=== PATIENT | female | born 1960 | race Caucasian/White ===

== ENCOUNTER 2021-04-15 16:13 | Outpatient (REF) | payer OTHER, SELFPAY ==
[2021-04-15 17:36] LABS: MANUAL DIFF FLAG NO
[2021-04-15 17:41] LABS: Basophils Absolute Auto 0.1 X10*3/uL (0.0-0.2); Basophils Percent Auto 1.5 % (0-2); Eosinophils Absolute Auto 0.1 X10*3/uL (0.0-0.4); Eosinophils Percent Auto 1.5 % (0-4); Hematocrit 37.4 % (37-47); Hemoglobin 12.2 g/dl (12.0-16.0); Imm Gran Abs Auto 0.01 X10*3/uL (0.00-0.03); Imm Gran Pct Auto 0.2 % (0.0-0.4); Lymphocytes Absolute Auto 2.1 X10*3/uL (1.2-4.9); Lymphocytes Percent Auto 39.2 % (20-40); Mean Corpuscular HGB Conc 32.6 g/dl (31.0-35.0); Mean Corpuscular Hemoglobin 31.1 pg (27.0-33.0); Mean Corpuscular Volume 95.4 fL (80-98); Mean Platelet Volume 9.4 fL (9.4-12.3); Monocytes Absolute Auto 0.5 X10*3/uL (0.1-1.2); Monocytes Percent Auto 8.5 % (2-11); Neutrophils Absolute Auto 2.7 X10*3/uL (2.0-8.3); Neutrophils Percent Auto 49.1 % (45-73); Platelet Count 347 X10*3/uL (160-400); Red Blood Count 3.92 X10*6/uL (4.20-5.50); Red Cell Distribution Width 12.3 % (11.0-16.0); White Blood Count 5.4 X10*3/uL (4.8-10.8)
[2021-04-15 18:29] LABS: Alanine Aminotransferase 11 U/L (0-31); Albumin Level 4.5 g/dL (3.5-5.0); Alkaline Phosphatase 77 U/L (39-117); Anion Gap 12 (12-20); Aspartate Amino Transferase 18 U/L (5-31); Bilirubin Total 0.8 mg/dL (0.0-1.0); Blood Urea Nitrogen 11 mg/dL (9-16); C Reactive Protein 0.16 mg/dL (< or = 0.50); Calcium 9.3 mg/dL (8.4-10.2); Carbon Dioxide 26 mmol/L (22-29); Chloride 108 mmol/L (96-108); Estimated Glomerular Filt Rate > 60; Glucose Random 88 mg/dL (60-115); Potassium 3.9 mmol/L (3.3-5.1); Sodium 142 mmol/L (135-145); Total Protein 6.9 g/dL (6.5-8.0)
[2021-04-15 18:51] LABS: Thyroid Stimulating Hormone 6.77 uIU/mL (0.32-4.0)
[2021-04-15 18:52] LABS: Vitamin B12 280 pg/mL (200-900)
== END 2021-04-15 16:14 | disposition home or self-care (01) ==
LOC: HO.LAB 16:13
PROVIDERS: PCP Internal Medicine; Visit Provider Internal Medicine
DX: R63.4 Abnormal weight loss (principal); E03.9 Hypothyroidism, unspecified; G43.909 Migraine, unspecified, not intractable, without status migrainosus
CPT/HCPCS: 36415; 80053; 82306; 82607; 84439; 84443; 85025; 86140

== ENCOUNTER 2021-07-07 08:38 | Day surgery (SDC) | payer OTHER, SELFPAY ==
[2021-07-03 07:45] VITALS: BMI 23.3
--- NOTE | 2021-07-03 09:48 | P.CONAN_ITS ---
Documented by User: Dianna Sweeney NP 07/10/21 14:23 HPI - Anesthesia Eval Consult details Narrative: 60yo F for Colonoscopy PMFSH Past Medical History Medical History (Updated 06/30/21 @ 11:47 by Chayo Curry, TIMMY) Anxiety and depression Arthritis Hx of migraines Hypothyroid Surgical History Surgical History (Updated 06/30/21 @ 11:47 by Chayo Curry RN) History of laparoscopic appendectomy Hx of colonoscopy Hx of hysterectomy Social History Social History Patient Tobacco Use Status: Former Tobacco user Use of substances other than those prescribed or required for medical reasons: No Are you DNR?: No Advance Directives: No Advance Directives Information Provided: Yes Meds Allergies Allergy/AdvReac Type Severity Reaction Status Date / Time DUST Allergy Unknown CONGESTION; Uncoded 06/30/21 11:47 ITCHINESS Environmental Allergy Unknown STUFFY NOSE Uncoded 06/30/21 11:47 Home Medications Medication Instructions Recorded Confirmed Last Taken Type buspirone 5 mg tablet 1 tab PO BID 06/30/21 06/30/21 Unknown History levothyroxine 88 mcg tablet 1 tab PO DAILY 06/30/21 06/30/21 Unknown History (Synthroid) lorazepam 1 mg tablet 1 mg PO BID PRN 07/01/21 07/01/21 Unknown History omega 8-xrj-lcf-fish oil 1,200 mg cap PO 07/01/21 Unknown History (144 mg-216 mg) capsule (Fish Oil) quetiapine 100 mg tablet (Seroquel) 100 mg PO BEDTIME 07/01/21 07/01/21 Unknown History venlafaxine 100 mg tablet 100 mg PO DAILY 07/01/21 07/01/21 Unknown History acetaminophen 325 mg tablet 325 mg PO QID PRN 07/07/21 07/07/21 Unknown History Exam Exam Date and Time: July 03, 2021 0948 Height,Weight and Vital Signs: Height 5 ft 7 in Weight 67.585 kg Pertinent Lab Results Pertinent Lab Results: Laboratory Tests 04/15/21 04/15/21 16:30 16:30 WBC 5.4 Hgb 12.2 Hct 37.4 Plt Count 347 Sodium 142 Potassium 3.9 Chloride 108 Carbon Dioxide 26 BUN 11 Creatinine 0.81 Assessment and Plan Assessment Anesthesia Assessment: Chart Reviewed Documented by User: Chace Ramirez MD 07/14/21 16:39 PMFSH Past Medical History Medical History (Updated 06/30/21 @ 11:47 by Chayo Curry RN) Anxiety and depression Arthritis Hx of migraines Hypothyroid Family History Family history of problems with anesthesia: No Surgical History Surgical History (Updated 06/30/21 @ 11:47 by Chayo Curry RN) History of laparoscopic appendectomy Hx of colonoscopy Hx of hysterectomy History of Problems with Anesthesia: No Social History Social History Patient Tobacco Use Status: Former Tobacco user Use of substances other than those prescribed or required for medical reasons: No Are you DNR?: No Advance Directives: No Advance Directives Information Provided: Yes Meds Allergies Allergy/AdvReac Type Severity Reaction Status Date / Time DUST Allergy Unknown CONGESTION; Uncoded 06/30/21 11:47 ITCHINESS Environmental Allergy Unknown STUFFY NOSE Uncoded 06/30/21 11:47 Home Medications Medication Instructions Recorded Confirmed Last Taken Type buspirone 5 mg tablet 1 tab PO BID 06/30/21 06/30/21 Unknown History levothyroxine 88 mcg tablet 1 tab PO DAILY 06/30/21 06/30/21 Unknown History (Synthroid) lorazepam 1 mg tablet 1 mg PO BID PRN 07/01/21 07/01/21 Unknown History omega 2-iob-ucj-fish oil 1,200 mg cap PO 07/01/21 Unknown History (144 mg-216 mg) capsule (Fish Oil) quetiapine 100 mg tablet (Seroquel) 100 mg PO BEDTIME 07/01/21 07/01/21 Unknown History venlafaxine 100 mg tablet 100 mg PO DAILY 07/01/21 07/01/21 Unknown History acetaminophen 325 mg tablet 325 mg PO QID PRN 07/07/21 07/07/21 Unknown History Assessment and Plan Assessment Anesthesia Assessment: Anesthesia Plan Discussed Final Anesthetic Review Family History of Problems with Anesthesia: No History of Problems with Anesthesia: No NPO: Yes ASA Class: II Final Preanesthetic Review: No Changes in Pt Med Stat, Meds/Allgs Chart Reviewe d, Consent Obtained/Reviewed and Anes Risks/Benef Reviewed Patient Risk: Low Procedure Risk: Low Anesthetic Plan Anesthetic Plan: MAC: Disposition: Standard PACU
[2021-07-07 08:47] VITALS: BP 154/82; PULSE 88; RESP 16; TEMP 36.5; O2SAT 100
[2021-07-07] MEDS: Lactated Ringers 1,000 ML 100 ML IVCONT (09:16)
--- NOTE | 2021-07-07 09:36 | MHC.SHP ---
Pre-Procedural Eval Section A Date of Service: 07/07/21 The patient is an INPATIENT: No Changes since office visit: No Cold of Flu in the past 2 weeks, No New Medical Problems, No Changes in Medication and No Patient answered all questions The History & Physical has been completed within 30 days and I have reviewed it.: Yes Section B Chief Complaint: screening Allergies: Allergies Allergy/AdvReac Type Severity Reaction Status Date / Time DUST Allergy Unknown CONGESTION; Uncoded 06/30/21 11:47 ITCHINESS Environmental Allergy Unknown STUFFY NOSE Uncoded 06/30/21 11:47 Plan I have reviewed the history and physical and performed a pertinent physical examination on my patient. No changes have occurred unless specified.
[2021-07-07 10:13] VITALS: BP 108/60; PULSE 73; TEMP 36.5; O2SAT 98
--- NOTE | 2021-07-07 10:16 | PC.NURSE ---
md silva by bedside. patient remains sleeping. cont to monitor.
--- NOTE | 2021-07-07 10:20 | PM.OP ---
Brief Operative Note Date of Service: 07/07/21 Pre-op diagnosis: screening Post-op diagnosis: same Procedure: colonoscopy Surgeon: Kameron Austin Anesthesia: MAC Was an Vice President Of Customer Service used for this Procedure?: No Estimated blood loss (mL): 0 Pathology: none sent Condition: stable Disposition: PACU
--- NOTE | 2021-07-07 10:26 | PC.NURSE ---
sitting up in bed drinking water. denies pain or nausea.
[2021-07-07 10:28] VITALS: BP 130/67; PULSE 70; RESP 16; TEMP 36.5; O2SAT 99
--- NOTE | 2021-07-07 10:50 | OP_ITS ---
SURGEON: Kameron Austin MD INDICATIONS: Colon cancer screening. PREOPERATIVE DIAGNOSIS: POSTOPERATIVE DIAGNOSIS: PROCEDURE PERFORMED: Colonoscopy to the terminal ileum. ESTIMATED BLOOD LOSS: COMPLICATIONS: ANESTHESIA: ASSISTANTS: SPECIMENS: MEDICATIONS: Monitored anesthesia care. DESCRIPTION OF PROCEDURE: History and physical performed. The risks and benefits of the procedure were explained to the patient. Informed consent was obtained. The patient was placed in the left lateral decubitus position. The digital rectal exam was performed and was found to be normal. The Olympus pediatric video colonoscope was introduced into the rectum and advanced to the cecum without difficulty. The cecum was identified by transillumination, palpation, and identification of ileocecal valve. Examination was performed and the scope was removed. She tolerated the procedure well and was taken to recovery area in stable condition. FINDINGS: The terminal ileum was normal. The visualized colonic mucosa was normal. The quality of the prep was good. No polyps were identified. There were few diverticula in the sigmoid colon. Retroflexed examination was normal. IMPRESSION: Normal colonoscopy. RECOMMENDATIONS: 1. Follow up as needed. 2. Repeat colonoscopy is recommended in 10 years for average risk individuals. MD TRINY Valerio/WILBER / [id number]
== END 2021-07-07 11:04 | disposition home or self-care (01) ==
PROVIDERS: PCP Internal Medicine; Visit Provider Internal Medicine Gastroenterology
PROC: 0DJD8ZZ Inspection of Lower Intestinal Tract, Via Natural or Artificial Opening Endoscopic (ICD-10-PCS; CPT 45378; principal; 2021-07-07 09:30)
DX: Z12.11 Encounter for screening for malignant neoplasm of colon (principal); Z86.010 Personal history of colon polyps; K57.30 Diverticulosis of large intestine without perforation or abscess without bleeding; K58.0 Irritable bowel syndrome with diarrhea; E03.9 Hypothyroidism, unspecified; J30.2 Other seasonal allergic rhinitis; Z85.41 Personal history of malignant neoplasm of cervix uteri; Z90.710 Acquired absence of both cervix and uterus; Z79.899 Other long term (current) drug therapy
CPT/HCPCS: 45378

== ENCOUNTER 2021-08-17 14:59 | Outpatient (REF) | payer OTHER, SELFPAY ==
[2021-08-17 15:51] LABS: Influenza A PCR NEGATIVE (Negative); Influenza B PCR NEGATIVE (Negative); Resp Syncy Virus RNA Qual PCR NEGATIVE (Negative); SARS COV2 PCR INHOUSE NEGATIVE (Negative)
== END 2021-08-17 15:00 | disposition home or self-care (01) ==
LOC: HO.LNP 14:59
PROVIDERS: Visit Provider Internal Medicine
DX: Z20.822 Contact with and (suspected) exposure to COVID-19 (principal); R05.9 Cough, unspecified
CPT/HCPCS: 0241U

== ENCOUNTER 2022-01-29 18:03 | Emergency (ER) | payer OTHER, SELFPAY ==
[2022-01-29 19:29] VITALS: BP 134/52; PULSE 76; RESP 18; TEMP 36.1; O2SAT 100; BMI 22.8
[2022-01-29 22:23] VITALS: BP 153/54; PULSE 79; RESP 18; TEMP 36.7; O2SAT 98
--- NOTE | 2022-01-29 22:48 | ED.ALLEREA ---
HPI - Allergic Reaction General Chief complaint: Skin/Abscess/Foreign Body Stated complaint: Rash Time Seen by Provider: 01/29/22 22:40 Source: patient Mode of arrival: ambulatory Limitations: no limitations History of Present Illness HPI narrative: 61-year-old female who presents emergency department for evaluation of a pruritic rash. The patient states that the rash started yesterday afternoon. The rash started on her hands and then spread rapidly to her legs and whole body. The rash is pruritic. She is concerned that it may be an allergic reaction caused by a dog flea collar that she put on her dog recently. She denied swelling of her lips or tongue. She denied difficulty swallowing. She denied lightheadedness, dizziness, nausea, vomiting, shortness of breath or dyspnea on exertion. Patient states she took 25 mg of Benadryl yesterday and today with no relief for symptoms. She was concerned that the rash was spreading therefore she came to the emergency department for evaluation. MD complaint: allergic reaction Onset (ago): day(s) (2) Exposure: other (Exposure to dog flea college) Symptoms: rash and itching Severity: severe Treatment prior to arrival: benadryl Previous Allergic Reaction History: none Related Data Home Medications Medication Instructions Recorded Confirmed buspirone 5 mg tablet 1 tab PO BID 06/30/21 06/30/21 levothyroxine 88 mcg tablet 1 tab PO DAILY 06/30/21 06/30/21 (Synthroid) lorazepam 1 mg tablet 1 mg PO BID PRN 07/01/21 07/01/21 omega 7-rml-quj-fish oil 1,200 mg cap PO 07/01/21 (144 mg-216 mg) capsule (Fish Oil) quetiapine 100 mg tablet (Seroquel) 100 mg PO BEDTIME 07/01/21 07/01/21 venlafaxine 100 mg tablet 100 mg PO DAILY 07/01/21 07/01/21 acetaminophen 325 mg tablet 325 mg PO QID PRN 07/07/21 07/07/21 Previous Rx's Medication Instructions Recorded prednisone 20 mg tablet 60 mg PO DAILY 7 Days #21 tab 01/29/22 Allergies Allergy/AdvReac Type Severity Reaction Status Date / Time oxycodone [From OxyContin] Allergy Vomiting Verified 01/29/22 19:33 DUST Allergy Unknown CONGESTION; Uncoded 06/30/21 11:47 ITCHINESS Environmental Allergy Unknown STUFFY NOSE Uncoded 06/30/21 11:47 Review of Systems Review of Systems: Yes all other systems are reviewed and are negative [facility] Past Medical History Medical History Anxiety and depression Arthritis Hx of migraines Hypothyroid Surgical History History of laparoscopic appendectomy Hx of colonoscopy Hx of hysterectomy Social History Social History Patient Tobacco Use Status: Former Tobacco user Advance Directives: No Advance Directives Information Provided: Yes Physical Exam ED Vital Signs: Vital Signs - 24 hr 01/29/22 19:29 01/29/22 22:23 Temperature 97 F 98.0 F Pulse Rate 76 79 Respiratory Rate 18 18 Blood Pressure 134/52 L 153/54 H Pulse Oximetry 100 98 BMI result Body Mass Index 22.8 Const General: cooperative and no acute distress Orientation/consciousness: oriented to person and oriented to place Limitations: no limitations HENMT Head: Yes normal to inspection, Yes normocephalic and Yes atraumatic Ears: external ears normal General nose exam: Normal external nose present Face and sinus: Yes normal facial exam Mouth: Normal oral and palatal mucosa present Throat: Yes posterior oropharynx normal Eyes General: appearance normal, both eyes and all related structures Pupils: Equal, round and reactive pupils present Neck Neck: Yes normal visual inspection, Yes no lymphadenopathy, Yes trachea midline and Yes supple Chest Chest palpation & inspection: normal inspection of the chest and normal palpation of entire chest wall Resp Effort & Inspection: normal respiratory effort and able to speak in complete sentences Auscultation: clear to auscultation bilaterally Cardio Rate: regular rate Rhythm: regular rhythm Heart sounds: S1 normal heart sound present, S2 normal heart sound present and no murmurs GI Inspection: Yes normal to inspection Palpation (GI): Soft to palpation, nontender and no guarding Auscultation: normal bowel sounds General: Yes no CVA tenderness Back/Spine/Pelvis Back: no CVA tenderness Skin Other: Diffuse urticarial rash which blanches with pressure Neuro General: oriented to person and oriented to place Cranial nerves: Yes CN's II-XII intact bilaterally and Yes Equal, round and reactive pupils present Cognition (Neuro): normal cognition Motor exam (neuro): 5/5 motor strength present throughout Extrem General: Yes normal to inspection Psych Appearance: grossly normal Speech and movement: Normal speech and movement present Affect: normal affect Attitude: cooperative Thought process: Normal thought process present Thought content: Normal thought content present Course Course Course Narrative: 61-year-old female who presents to emergency department for evaluation of pruritic urticarial rash x2 days. Patient believes that the rash may be secondary to an exposure to her dogs flea collar which she recently put on her dog. The patient had no concerning symptoms such is lip or tongue swelling, difficulty swallowing, shortness of breath, nausea, vomiting or dyspnea on exertion. I did discuss management allergic reactions with the patient. Patient was given prednisone 60 mg orally. She was advised to take prednisone 60 mg once a day for 5 more days. She was also advised to take Benadryl 50 mg 4 times a day as needed for the pruritic rash. She was given printed and verbal instructions and discharged home. Discharge Plan Discharge Clinical Impression: Urticaria Allergic reaction Qualifiers: Encounter type: initial encounter Qualified Code(s): T78.40XA - Allergy, unspecified, initial encounter Patient Disposition: Home, Self-Care Instructions: Urticaria (ED) Additional Instructions: Your symptoms and rash are consistent with an allergic reaction. I would suggest that you remove the dog sleep collar since this could be the cause of your rash. Take Benadryl (diphenhydramine) 25 mg pills, 2 pills 4 times a day for the next 2-3 days to help reduce the swelling and itchiness in the area of your rash. This medication will make you sleepy. Do not drive or work while taking this medication. Take prednisone 20 mg pills, 3 pills once a day for 5 days. Follow-up with your doctor in 2 days. Please return to the emergency department if your symptoms get worse or if you develop any symptoms that are concerning to you. Prescriptions: New prednisone 20 mg tablet 60 mg PO DAILY 7 Days Qty: 21 0RF No Action buspirone 5 mg tablet 1 tab PO BID 0RF levothyroxine [Synthroid] 88 mcg tablet 1 tab PO DAILY 0RF quetiapine [Seroquel] 100 mg Tablet 100 mg PO BEDTIME 0RF venlafaxine 100 mg Tablet 100 mg PO DAILY 0RF lorazepam 1 mg Tablet 1 mg PO BID PRN (Reason: Anxiety) 0RF omega 9-pab-txj-fish oil [Fish Oil] 1,200 (144-216) mg Capsule PO 0RF acetaminophen 325 mg Tablet 325 mg PO QID PRN (Reason: Pain (Scale Score 1-3)) 0RF Interventions: ED Discharge Assessment Last Done: 01/29/22 22:49 Discharge Date/Time: 01/29/22 23:35
[2022-01-29] MEDS: predniSONE 20 MG TABLET 60 MG PO (23:30)
== END 2022-01-29 23:35 | disposition home or self-care (01) ==
PROVIDERS: Emergency Provider Emergency Medicine Emergency Medical Services; PCP Internal Medicine
DX: L50.0 Allergic urticaria (principal)
CPT/HCPCS: 99283

== ENCOUNTER 2022-02-03 18:30 | Emergency (ER) | payer OTHER, SELFPAY ==
--- NOTE | 2022-02-03 | ECG_ITS ---
Test Reason : rash Blood Pressure : / mmHG Vent. Rate : 090 BPM Atrial Rate : 090 BPM P-R Int : 148 ms QRS Dur : 088 ms QT Int : 346 ms P-R-T Axes : 073 035 026 degrees QTc Int : 423 ms Normal sinus rhythm Possible Left atrial enlargement Borderline ECG No previous ECGs available Referred By: Generic ED Physician Electronically Signed By:YNES RAJPUT MD
[2022-02-03 19:03] VITALS: BP 136/61; PULSE 108; RESP 20; TEMP 36.6; O2SAT 98; BMI 23.1
[2022-02-03 19:20] LABS: MANUAL DIFF FLAG NO
[2022-02-03 19:28] LABS: Basophils Percent Auto 0.1 % (0-2); Eosinophils Absolute Auto 0.2 X10*3/uL (0.0-0.4); Eosinophils Percent Auto 2.1 % (0-4); Hemoglobin 12.1 g/dl (12.0-16.0); Imm Gran Abs Auto 0.02 X10*3/uL (0.00-0.03); Imm Gran Pct Auto 0.3 % (0.0-0.4); Lymphocytes Absolute Auto 1.9 X10*3/uL (1.2-4.9); Lymphocytes Percent Auto 26.7 % (20-40); Mean Corpuscular HGB Conc 32.7 g/dl (31.0-35.0); Mean Corpuscular Hemoglobin 30.6 pg (27.0-33.0); Mean Corpuscular Volume 93.4 fL (80.0-98.0); Mean Platelet Volume 8.8 fL (9.4-12.3); Monocytes Absolute Auto 0.7 X10*3/uL (0.1-1.2); Monocytes Percent Auto 9.3 % (2-11); Neutrophils Absolute Auto 4.3 x10*3/uL (2.0-8.3); Neutrophils Percent Auto 61.5 % (45-73); Platelet Count 297 X10*3/uL (160-400); Red Blood Count 3.96 X10*6/uL (4.20-5.50); Red Cell Distribution Width 12.9 % (11.0-16.0)
[2022-02-03 19:32] LABS: Anion Gap 11 (12-20); Blood Urea Nitrogen 19 mg/dL (9-16); Calcium 9.1 mg/dL (8.4-10.2); Carbon Dioxide 29 mmol/L (22-29); Chloride 105 mmol/L (96-108); Creatinine Clr Calc Pharmacy 59.4; Estimated Glomerular Filt Rate 57; Glucose Random 103 mg/dL (60-115); Potassium 3.8 mmol/L (3.3-5.1); Sodium 141 mmol/L (135-145)
[2022-02-03 19:33] LABS: COVID-19 Test Positive (Negative); IDNOW Serial# 16C4AD1C
[2022-02-03 19:37] LABS: Influenza A Negative (Negative); Influenza B2 Negative (Negative)
[2022-02-03 19:54] LABS: Troponin-I High Sensitivity < 3.5 ng/L (<3.5-17.0)
--- NOTE | 2022-02-03 21:43 | ED_ITS ---
HPI - General Adult General Chief complaint: General Medical Stated complaint: rash Time Seen by Provider: 02/03/22 21:41 Source: patient Mode of arrival: ambulatory Limitations: no limitations History of Present Illness HPI narrative: 61 y/o female with history of hypothyrodism, depression, anxiety who presents to the ER for evaluation of an ongoing itchy rash all over her body. She was seen here on 01/29 for the same and was prescribed a 7 day course of prednisone 60 mg. She reports taking extra prednisone and completed the course yesterday, after 5 days. She reports no improvement with benadryl but has not been taking it regularly. She went to go buy hydroortisone cream today and while in the store she felt weak and lightheaded. She also started with a productive cough wtih yellow phlegm. No SOB or chest pain. Her brother recently got diagnosed with COVID. 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 MD complaint: rash Onset (ago): day(s) () Location: back, buttocks, left, right, upper extremity and lower extremity Severity: severe Quality: burning and other (itching) Pain Consistency: constant Relieving factors: medication Exacerbating factors: none Associated symptoms: cough and weakness Treatments prior to arrival: none Related Data Home Medications Medication Instructions Recorded Confirmed buspirone 5 mg tablet 1 tab PO BID 06/30/21 06/30/21 levothyroxine 88 mcg tablet 1 tab PO DAILY 06/30/21 06/30/21 (Synthroid) lorazepam 1 mg tablet 1 mg PO BID PRN 07/01/21 07/01/21 omega 6-zhx-cki-fish oil 1,200 mg cap PO 07/01/21 (144 mg-216 mg) capsule (Fish Oil) quetiapine 100 mg tablet (Seroquel) 100 mg PO BEDTIME 07/01/21 07/01/21 venlafaxine 100 mg tablet 100 mg PO DAILY 07/01/21 07/01/21 acetaminophen 325 mg tablet 325 mg PO QID PRN 07/07/21 07/07/21 Previous Rx's Medication Instructions Recorded prednisone 20 mg tablet 60 mg PO DAILY 7 Days #21 tab 01/29/22 prednisone 10 mg tablets in a dose See Taper PO DAILY #21 ea 02/03/22 pack Allergies Allergy/AdvReac Type Severity Reaction Status Date / Time oxycodone [From OxyContin] Allergy Vomiting Verified 01/29/22 19:33 DUST Allergy Unknown CONGESTION; Uncoded 06/30/21 11:47 ITCHINESS Environmental Allergy Unknown STUFFY NOSE Uncoded 06/30/21 11:47 Review of Systems Review of Systems: Constitutional: No Fever, No Chills ENT/Mouth: + sore throat, No Rhinorrhea, No Swallowing Difficulty Eyes: No Eye Pain, No Swelling, No Redness Cardiovascular: No Chest Pain, No SOB, No Orthopnea, No Edema Respiratory: + Cough, + Sputum, No Wheezing, No dyspnea Gastrointestinal: No Nausea, No Vomiting, No Diarrhea, No abdominal Pain Musculoskeletal: No joint pain, No Myalgias Skin: No Skin Lesions, + rash Neuro: +Weakness, No Numbness, +Dizziness, No Headache Psych: + Anxiety/Panic, No Depression Heme/Lymph: No Bruising, No Lymphadenopathy PMFSH Past Medical History Medical History Anxiety and depression Arthritis Hx of migraines Hypothyroid Surgical History History of laparoscopic appendectomy Hx of colonoscopy Hx of hysterectomy Social History Social History Patient Tobacco Use Status: Former Tobacco user Advance Directives: No Advance Directives Information Provided: Yes Physical Exam ED Vital Signs: Vital Signs - 24 hr 02/03/22 19:03 02/03/22 21:47 02/03/22 21:48 Temperature 97.8 F Pulse Rate 108 H 90 94 Respiratory Rate 20 Blood Pressure 136/61 134/69 117/72 Pulse Oximetry 98 02/03/22 21:51 02/03/22 21:53 Temperature Pulse Rate 95 94 Respiratory Rate 16 Blood Pressure 131/61 117/72 Pulse Oximetry 98 BMI result Body Mass Index 23.1 Appearance: Alert. Oriented X3. No acute distress. Eyes: Pupils equal, round and reactive to light. ENT: Pharynx normal. Neck: Normal inspection. Neck supple. CVS: Normal heart rate and rhythm. Pulses normal. Respiratory: No respiratory distress. Breath sounds normal. Abdomen: Soft and nontender. +BS x4 Skin: Skin warm and dry. Normal skin color. Normal skin turgor. Diffuse erythematous maclopapular rash on the anterior thighs, dorsal forearms and hands , lower back, buttocks and posterior thighs. Extremities: No lower extremity edema. scattered ecchymotic areas on shins Neuro: Oriented X 3. No motor deficit. No sensory deficit. anxious Course Course Course Narrative: 61-year-old female presents to the ER with ongoing pruritic rash all over her body. Seen here 5 days ago for the same. No improvement with steroids. She is not taking benadryl regularly. On reinterview patient reports getting new laundry detergent called Eder which she has never used before. Could be etiology of her rash. Given she has been on high dose prednisone for 5+ days, will plan for a quick taper. Will also encourage patient to continue regular use of benadryl to stop histamine reaction. She will rewash her laundry with hypoallergenic detergent. Reevaluation(s) Reevaluation #1: Covid test is positive. EKG without STEMI or ischemic changes. Troponin negative. SpO2 98% on room air. COVID symptoms are mild. Counseled on worrisome signs and symptoms to promput urgent return to the ER. Will d/w with pred taper, topical hydrocortisone, and benadryl - counseled multiple times on importance of benadryl and removing the affecting agent from the home, most likely her new Eder detergent. Medical Decision Making Lab Data Result diagrams: 02/03/22 19:14 02/03/22 19:14 Labs: Lab Results 02/03/22 02/03/22 02/03/22 Range/Units 19:14 19:14 19:14 WBC 7.0 (4.8-10.8) X10*3/uL RBC 3.96 L (4.20-5.50) X10*6/uL Hgb 12.1 (12.0-16.0) g/dl Hct 37.0 (37.0-47.0) % MCV 93.4 (80.0-98.0) fL MCH 30.6 (27.0-33.0) pg MCHC 32.7 (31.0-35.0) g/dl RDW 12.9 (11.0-16.0) % Plt Count 297 (160-400) X10*3/uL MPV 8.8 L (9.4-12.3) fL Immature Gran % (Auto) 0.3 (0.0-0.4) % Neut % (Auto) 61.5 (45-73) % Lymph % (Auto) 26.7 (20-40) % [place] % (Auto) 9.3 (2-11) % Eos % (Auto) 2.1 (0-4) % Baso % (Auto) 0.1 (0-2) % Lymph # (Auto) 1.9 (1.2-4.9) X10*3/uL [place] # (Auto) 0.7 (0.1-1.2) X10*3/uL Eos # (Auto) 0.2 (0.0-0.4) X10*3/uL Baso # (Auto) 0.0 (0.0-0.2) X10*3/uL Abs Immat Gran (auto) 0.02 (0.00-0.03) X10*3/uL Absolute Neuts (auto) 4.3 (2.0-8.3) x10*3/uL Absolute Nucleated RBC 0.000 (0.0-0.012) X10*3/uL Nucleated RBC % (auto) 0.0 (0.0-0.2) /100WBC Sodium 141 (135-145) mmol/L Potassium 3.8 (3.3-5.1) mmol/L Chloride 105 (96-108) mmol/L Carbon Dioxide 29 (22-29) mmol/L Anion Gap 11 L (12-20) BUN 19 H (9-16) mg/dL Creatinine 0.99 (0.5-1.4) mg/dL Estim Creat Clear Calc 59.4 Estimated GFR 57 Random Glucose 103 (60-115) mg/dL Calcium 9.1 (8.4-10.2) mg/dL Troponin I High Sens (<3.5-17.0) ng/L COVID-19 (RAJ) Positive A (Negative) COVID-19 Clin Com See Note Influenza Type A ([facility]ARDO) (Negative) Influenza Type B (EVERARDO) (Negative) Influenza A & B Note 02/03/22 02/03/22 Range/Units 19:14 19:14 WBC (4.8-10.8) X10*3/uL RBC (4.20-5.50) X10*6/uL Hgb (12.0-16.0) g/dl Hct (37.0-47.0) % MCV (80.0-98.0) fL MCH (27.0-33.0) pg MCHC (31.0-35.0) g/dl RDW (11.0-16.0) % Plt Count (160-400) X10*3/uL MPV (9.4-12.3) fL Immature Gran % (Auto) (0.0-0.4) % Neut % (Auto) (45-73) % Lymph % (Auto) (20-40) % [place] % (Auto) (2-11) % Eos % (Auto) (0-4) % Baso % (Auto) (0-2) % Lymph # (Auto) (1.2-4.9) X10*3/uL [place] # (Auto) (0.1-1.2) X10*3/uL Eos # (Auto) (0.0-0.4) X10*3/uL Baso # (Auto) (0.0-0.2) X10*3/uL Abs Immat Gran (auto) (0.00-0.03) X10*3/uL Absolute Neuts (auto) (2.0-8.3) x10*3/uL Absolute Nucleated RBC (0.0-0.012) X10*3/uL Nucleated RBC % (auto) (0.0-0.2) /100WBC Sodium (135-145) mmol/L Potassium (3.3-5.1) mmol/L Chloride (96-108) mmol/L Carbon Dioxide (22-29) mmol/L Anion Gap (12-20) BUN (9-16) mg/dL Creatinine (0.5-1.4) mg/dL Estim Creat Clear Calc Estimated GFR Random Glucose (60-115) mg/dL Calcium (8.4-10.2) mg/dL Troponin I High Sens < 3.5 (<3.5-17.0) ng/L COVID-19 (RAJ) (Negative) COVID-19 Clin Com Influenza Type A (EVERARDO) Negative (Negative) Influenza Type B (EVERARDO) Negative (Negative) Influenza A & B Note See Note ECG Data Attestation: I personally reviewed and interpreted this ECG as follows: Interpretation: Normal sinus rhythm, heart rate 90 beats per minute, normal QTC, normal SC interval, no ST segment elevations or depressions. Critical Care Time Critical Care Time Critical Care Time: No Discharge Plan Discharge Clinical Impression: COVID-19, Dermatitis Patient Disposition: Home, Self-Care Instructions: Covid-19 Viral Syndrome and Novel Coronavirus (ED) Hey/Ath, Dermatitis (ED) Additional Instructions: You were found to be COVID-19 POSITIVE today. Your lab workup was otherwise unremarkable. Rest. Drink plenty of fluids. Do not go out in public while you are not feeling well. Take over the counter cold/flu medications as needed for your symptoms. Take Tylenol and/or Motrin as needed for fevers and body aches. Take the prescribed Prednisone taper exactly as directed. Take Benadryl 50 mg every 6-8 hours around the clock while awake. Use topical hydrocortisone cream on your back and buttock areas. Use ice to help the itching. Do your best not to scratch. Follow up with your doctor this week. Prescriptions: New prednisone 10 mg tablets,dose pack See Taper mg PO DAILY Qty: 21 0RF Taper: Prednisone 40 mg daily for 2 Days and 0 Hour 30 mg daily for 2 Days and 0 Hour 20 mg daily for 2 Days and 0 Hour 10 mg daily for 2 Days and 0 Hour No Action buspirone 5 mg tablet 1 tab PO BID 0RF levothyroxine [Synthroid] 88 mcg tablet 1 tab PO DAILY 0RF quetiapine [Seroquel] 100 mg Tablet 100 mg PO BEDTIME 0RF venlafaxine 100 mg Tablet 100 mg PO DAILY 0RF lorazepam 1 mg Tablet 1 mg PO BID PRN (Reason: Anxiety) 0RF omega 8-qaw-fqr-fish oil [Fish Oil] 1,200 (144-216) mg Capsule PO 0RF acetaminophen 325 mg Tablet 325 mg PO QID PRN (Reason: Pain (Scale Score 1-3)) 0RF prednisone 20 mg tablet 60 mg PO DAILY 7 Days Qty: 21 0RF Referrals: Rick Ernst MD [Primary Care Provider] - Interventions: ED Discharge Assessment Last Done: 02/03/22 22:51
[2022-02-03 21:47] VITALS: BP 134/69; PULSE 90
[2022-02-03 21:48] VITALS: BP 117/72; PULSE 94
[2022-02-03 21:51] VITALS: BP 131/61; PULSE 95
[2022-02-03 21:53] VITALS: BP 117/72; PULSE 94; RESP 16; O2SAT 98
[2022-02-03] MEDS: diphenhydrAMINE HCL 25 MG TABLET 50 MG PO (22:31)
[2022-02-03] MEDS: LORazepam 1 MG TABLET PO (22:31)
[2022-02-03] MEDS: predniSONE 20 MG TABLET 40 MG PO (22:31)
[2022-02-03] MEDS: Hydrocortisone 1 % Ointment 28.35 GM TUBE 1 APPL TOPICAL (22:31)
== END 2022-02-03 22:54 | disposition home or self-care (01) ==
PROVIDERS: Emergency Provider Student in an Organized Health Care Education/Training Program; PCP Internal Medicine
DX: U07.1 COVID-19 (principal); L30.9 Dermatitis, unspecified; R21 Rash and other nonspecific skin eruption; Z79.899 Other long term (current) drug therapy
CPT/HCPCS: 80048; 84484; 85025; 87502; 87635; 93005; 99283; Q0163

== ENCOUNTER 2022-03-05 17:27 | Outpatient (REF) | payer OTHER, SELFPAY ==
[2022-03-05 17:51] LABS: Appearance Urine CLEAR; Color Urine YELLOW; Glucose Urine UA NEG (NEG); Leukocyte Esterase Urine NEG (NEG); Nitrite Urine NEG (NEG); PH 5.5 (5.0-8.0); Specific Gravity - Urine >= 1.030 (1.005-1.025); Urine Blood NEG (NEG); Urine Ketones NEG (NEG); Urine Protein NEG (NEG-TRACE)
== END 2022-03-05 17:28 | disposition home or self-care (01) ==
LOC: HO.LAB 17:27
PROVIDERS: PCP Internal Medicine; Visit Provider Internal Medicine
DX: R30.0 Dysuria (principal)
CPT/HCPCS: 81003; 87086

== ENCOUNTER 2022-06-09 13:56 | Outpatient (REF) | payer OTHER, SELFPAY ==
[2022-06-09 15:27] LABS: Thyroid Stimulating Hormone 5.93 uIU/mL (0.32-4.0)
[2022-06-10 14:54] LABS: Free T4 (Free Thyroxine) 1.08 ng/dL (0.71-1.85)
[2022-06-14 13:18] LABS: Thyroid Peroxidase Antibodies 21 IU/mL (<9)
== END 2022-06-09 13:57 | disposition home or self-care (01) ==
LOC: HO.LAB 13:56
PROVIDERS: PCP Internal Medicine; Visit Provider Internal Medicine
DX: R53.83 Other fatigue (principal); E03.9 Hypothyroidism, unspecified
CPT/HCPCS: 36415; 84439; 84443; 86376

== ENCOUNTER 2022-06-10 13:35 | Outpatient (REF) | payer OTHER, SELFPAY | END 2022-06-10 13:36 | disposition home or self-care (01) | LOC: HO.LAB 13:35 | PROVIDERS: PCP Internal Medicine; Visit Provider Internal Medicine | DX: Z13.89 Encounter for screening for other disorder (principal) ==

== ENCOUNTER 2022-06-15 12:33 | Emergency (ER) | payer OTHER, SELFPAY ==
[2022-06-15 12:59] VITALS: BP 134/60; PULSE 84; RESP 18; TEMP 36.6; O2SAT 98; BMI 22.8
== END 2022-06-15 18:23 | disposition left against medical advice (07) ==
PROVIDERS: Emergency Provider Emergency Medicine; PCP Internal Medicine
DX: G43.909 Migraine, unspecified, not intractable, without status migrainosus (principal)
CPT/HCPCS: 99281

== ENCOUNTER 2022-09-21 14:38 | Outpatient (REF) | payer OTHER, SELFPAY ==
--- NOTE | ~2022-09-21 | XR_ITS ---
EXAMINATION: XR CERVICAL SPINE CLINICAL INFORMATION: Neck pain. COMPARISON: 02/03/2010. TECHNIQUE: 6 views of the cervical spine. FINDINGS: No abnormal prevertebral soft tissue swelling is seen. There is narrowing of the joint spaces from C4 through C7. Mild marginal spurring is present. Appearance is unchanged from previous study of February 03, 2010. No acute fracture is identified. There is some anterior neural foraminal encroachment from spurring of the joints of [place]ch[place] present at the C4-C5 and C5-C6 levels on the right and at the C4-C5 and C5-C6 levels on the left. XR/XR cervical spine min 6V IMPRESSION: Cervical spondylosis C4-C7 as described. No acute cervical spine fracture.
[2022-09-21 15:18] LABS: Appearance Urine Clear; Color Urine Yellow; Glucose Urine UA Negative (Negative); Leukocyte Esterase Urine Negative (Negative); Nitrite Urine Negative (Negative); PH 5.5 (5.0-9.0); Urine Blood Negative (Negative); Urine Ketones Negative (Negative); Urine Protein Negative (Neg-Trace)
[2022-09-21 17:14] LABS: Thyroid Stimulating Hormone 3.95 uIU/mL (0.32-4.0)
== END 2022-09-21 14:39 | disposition home or self-care (01) ==
LOC: HO.LAB 14:38
PROVIDERS: Absent Provider Internal Medicine; PCP Internal Medicine; Visit Provider Internal Medicine Endocrinology, Diabetes & Metabolism
DX: R30.0 Dysuria (principal); B96.20 Unspecified Escherichia coli [E. coli] as the cause of diseases classified elsewhere; E03.9 Hypothyroidism, unspecified; F41.9 Anxiety disorder, unspecified; M54.2 Cervicalgia
CPT/HCPCS: 36415; 72052; 81003; 84443; 87086; 87088; 87186

== ENCOUNTER 2023-04-11 10:29 | Outpatient (REF) | payer OTHER, SELFPAY ==
[2023-04-11 10:48] LABS: MANUAL DIFF FLAG NO
[2023-04-11 11:29] LABS: Basophils Absolute Auto 0.1 X10*3/uL (0.0-0.2); Basophils Percent Auto 1.6 % (0-2); Eosinophils Absolute Auto 0.2 X10*3/uL (0.0-0.4); Eosinophils Percent Auto 3.3 % (0-4); Hematocrit 39.3 % (37.0-47.0); Hemoglobin 12.9 g/dl (12.0-16.0); Imm Gran Abs Auto 0.01 X10*3/uL (0.00-0.03); Imm Gran Pct Auto 0.2 % (0.0-0.4); Lymphocytes Absolute Auto 1.8 X10*3/uL (1.2-4.9); Lymphocytes Percent Auto 31.5 % (20-40); Mean Corpuscular HGB Conc 32.8 g/dl (31.0-35.0); Mean Corpuscular Hemoglobin 31.1 pg (27.0-33.0); Mean Corpuscular Volume 94.7 fL (80.0-98.0); Mean Platelet Volume 8.9 fL (9.4-12.3); Monocytes Absolute Auto 0.5 X10*3/uL (0.1-1.2); Monocytes Percent Auto 8.3 % (2-11); Neutrophils Absolute Auto 3.2 x10*3/uL (2.0-8.3); Neutrophils Percent Auto 55.1 % (45-73); Platelet Count 373 X10*3/uL (160-400); Red Blood Count 4.15 X10*6/uL (4.20-5.50); Red Cell Distribution Width 12.2 % (11.0-16.0); White Blood Count 5.8 X10*3/uL (4.8-10.8)
[2023-04-11 13:05] LABS: Alanine Aminotransferase 10 U/L (0-31); Albumin Level 4.3 g/dL (3.5-5.0); Alkaline Phosphatase 81 U/L (39-117); Anion Gap 13 (12-20); Aspartate Amino Transferase 17 U/L (5-31); Bilirubin Total 0.5 mg/dL (0.0-1.0); Blood Urea Nitrogen 12 mg/dL (9-16); Calcium 9.5 mg/dL (8.4-10.2); Carbon Dioxide 26 mmol/L (22-29); Chloride 109 mmol/L (96-108); Cholesterol 187 mg/dL; Estimated Glomerular Filt Rate > 60; Glucose Random 86 mg/dL (60-115); HDL Cholesterol 50 mg/dL; LDL Cholesterol Calculated 124 mg/dl; Potassium 4.2 mmol/L (3.3-5.1); Sodium 144 mmol/L (135-145); Total Protein 6.8 g/dL (6.5-8.0); Triglycerides 66 mg/dL
[2023-04-11 13:10] LABS: Free T4 (Free Thyroxine) 0.75 ng/dL (0.71-1.85); Thyroid Stimulating Hormone 15.82 uIU/mL (0.32-4.0)
== END 2023-04-11 10:30 | disposition home or self-care (01) ==
LOC: HO.LAB 10:29
PROVIDERS: PCP Internal Medicine; Visit Provider Internal Medicine
DX: E03.9 Hypothyroidism, unspecified (principal); M54.9 Dorsalgia, unspecified; R06.00 Dyspnea, unspecified
CPT/HCPCS: 36415; 80053; 80061; 84439; 84443; 85025

== ENCOUNTER → 2023-04-15 08:09 | Outpatient (REF) | payer OTHER, SELFPAY ==
--- NOTE | 2023-04-15 08:11 | CA_ITS ---
Acquisition Time: 2023-04-15 08:27:53 Total Exercise Time: 00:08:00 Test Indications: CP Medications: BUSPIRONE SYNTHROID VENLAFAXINE QUETIPINE Protocol: WILLOW Max HR: 155 BPM 98% of Pred: 157 BPM Max BP: 178/074 mmHG Max Work Load: 10.1 METS PT EXERCISED ON STD WILLOW PROTOCOL FOR 8 MIN INTO STAGE 3. MAX HR 155-98%MAX. NO CP OR SOB. NONSPECIFIC ST CHANGES. OCC PAC'S IN FIRST MIN OF RECOVERY. GOOD EXERCISE TOLERANCE CLINICALLY NEG TEST. NONSPECIFIC ST CHANGES NOT LIKELY TO BE DUE TO ISCHEMIA BASED ON PT'S LACK OF SXS AND GOOD EXERCISE TOLERANCE Referred By: Rick Beaver Overread By: LEW BEAVER MD
== END ==
LOC: HO.CARD 08:09
PROVIDERS: PCP Internal Medicine; Visit Provider Internal Medicine
DX: R07.89 Other chest pain (principal)
CPT/HCPCS: 93017

== ENCOUNTER 2023-08-05 12:04 | Outpatient (REF) | payer OTHER, SELFPAY ==
[2023-08-05 13:03] LABS: MANUAL DIFF FLAG NO
[2023-08-05 13:06] LABS: Basophils Absolute Auto 0.1 X10*3/uL (0.0-0.2); Basophils Percent Auto 1.4 % (0-2); Eosinophils Absolute Auto 0.1 X10*3/uL (0.0-0.4); Eosinophils Percent Auto 1.9 % (0-4); Hematocrit 37.9 % (37.0-47.0); Hemoglobin 12.8 g/dl (12.0-16.0); Imm Gran Abs Auto 0.01 X10*3/uL (0.00-0.03); Imm Gran Pct Auto 0.2 % (0.0-0.4); Mean Corpuscular HGB Conc 33.8 g/dl (31.0-35.0); Mean Corpuscular Hemoglobin 31.8 pg (27.0-33.0); Mean Platelet Volume 8.8 fL (9.4-12.3); Monocytes Absolute Auto 0.6 X10*3/uL (0.1-1.2); Monocytes Percent Auto 9.2 % (2-11); Neutrophils Absolute Auto 3.5 x10*3/uL (2.0-8.3); Neutrophils Percent Auto 56.3 % (45-73); Platelet Count 379 X10*3/uL (160-400); Red Blood Count 4.03 X10*6/uL (4.20-5.50); Red Cell Distribution Width 12.8 % (11.0-16.0); White Blood Count 6.3 X10*3/uL (4.8-10.8)
[2023-08-05 13:16] LABS: Appearance Urine Clear; Color Urine Yellow; Glucose Urine UA Negative (Negative); Leukocyte Esterase Urine Negative (Negative); Nitrite Urine Negative (Negative); PH 5.5 (5.0-9.0); Urine Blood Negative (Negative); Urine Ketones Negative (Negative); Urine Protein Negative (Neg-Trace)
[2023-08-05 13:21] LABS: Bacteria Urine None Seen (None Seen); Hyaline Casts Urine 0-2 /LPF (0-2); RBC Urine 0-2 /HPF (0-2); Squamous Epithelial Cell Urine 0-2 /HPF (0-2); WBC Urine 0-5 /HPF (0-5)
[2023-08-05 13:22] LABS: Anion Gap 8 (12-20); Blood Urea Nitrogen 16 mg/dL (9-16); Calcium 8.9 mg/dL (8.4-10.2); Carbon Dioxide 27 mmol/L (22-29); Chloride 108 mmol/L (96-108); Estimated Glomerular Filt Rate > 60; Glucose Random 92 mg/dL (60-115); Sodium 139 mmol/L (135-145)
[2023-08-05 13:38] LABS: Thyroid Stimulating Hormone 21.04 uIU/mL (0.32-4.0)
== END 2023-08-05 12:05 | disposition home or self-care (01) ==
LOC: HO.10HDL 12:04
PROVIDERS: Visit Provider Internal Medicine
DX: E03.9 Hypothyroidism, unspecified (principal); R30.0 Dysuria
CPT/HCPCS: 36415; 80048; 81001; 84439; 84443; 85025; 87086

== ENCOUNTER 2023-10-21 15:41 | Outpatient (REF) | payer OTHER, SELFPAY ==
[2023-10-21 18:40] LABS: Free T4 (Free Thyroxine) 0.78 ng/dL (0.71-1.85); Thyroid Stimulating Hormone 12.79 uIU/mL (0.32-4.0)
== END 2023-10-21 15:42 | disposition home or self-care (01) ==
LOC: HO.LAB 15:41
PROVIDERS: PCP Internal Medicine; Visit Provider Internal Medicine
DX: E03.9 Hypothyroidism, unspecified (principal)
CPT/HCPCS: 36415; 84439; 84443

== ENCOUNTER 2023-12-29 10:33 | Emergency (ER) | payer OTHER, SELFPAY ==
[2023-12-29 10:38] VITALS: BP 149/56; PULSE 76; RESP 16; TEMP 36.8; O2SAT 96; BMI 24.4
--- NOTE | 2023-12-29 11:00 | ED_ITS ---
HPI - Back Pain/Injury General Chief Complaint: Back Pain/Injury Stated Complaint: back pain Time Seen by Provider: 12/29/23 10:44 Source: patient Mode of arrival: ambulatory Limitations: no limitations History of Present Illness HPI Narrative: Jessica is a 63 year old female with history of hypothyroidism and osteoarthritis who presents today for evaluation of right lower back pain for 2 weeks. No history of recent injury or trauma. Reports that she had episode of diarrhea for 1 week prior to developing back pain. Pain is tender and stabbing in nature and localized to right flank region. Pain is not present at rest and most prominent with movement, bending, extension/flexion. Denies radiation or numbness/tingling. Reports increase in urination recently but denies pain or burning with urination, incontinence, or change in bowel movements. MD elicited complaint: back pain Onset (ago): week(s) (2) Timing: constant Pain scale (0-10): 7 Quality: sharp Exacerbating factors: movement and lifting Relieving factors: immobilization Context: bending Associated symptoms: denies other symptoms Work related injury: No Related Data Home Medications ?Medication ?Instructions ?Recorded ?Confirmed buspirone 5 mg tablet 1 tab PO BID 06/30/21 06/30/21 levothyroxine 88 mcg tablet 1 tab PO DAILY 06/30/21 06/30/21 (Synthroid) lorazepam 1 mg tablet 1 mg PO BID PRN Anxiety 07/01/21 07/01/21 omega 6-ssg-bll-fish oil 1,200 mg cap PO 07/01/21 (144 mg-216 mg) capsule (Fish Oil) quetiapine 100 mg tablet (Seroquel) 100 mg PO BEDTIME 07/01/21 07/01/21 venlafaxine 100 mg tablet 100 mg PO DAILY 07/01/21 07/01/21 acetaminophen 325 mg tablet 325 mg PO QID PRN Pain (Scale 07/07/21 07/07/21 Score 1-3) Previous Rx's ?Medication ?Instructions ?Recorded prednisone 20 mg tablet 60 mg (3 x 20 mg) PO DAILY 7 days 01/29/22 #21 tabs prednisone 10 mg tablets in a dose See Taper PO DAILY #21 ea 02/03/22 pack cyclobenzaprine 10 mg tablet 10 mg PO TID PRN muscle spasm #10 12/29/23 tabs ibuprofen 600 mg tablet 600 mg PO Q8H PRN pain #14 tabs 12/29/23 lidocaine 5 % topical patch 1 patch topical DAILY #15 ea 12/29/23 Allergies Allergy/AdvReac Type Severity Reaction Status Date / Time oxycodone [From OxyContin] Allergy Vomiting Verified 12/29/23 10:39 DUST Allergy Unknown CONGESTION; Uncoded 12/29/23 10:39 ITCHINESS Environmental Allergy Unknown STUFFY NOSE Uncoded 12/29/23 10:39 Review of Systems 2 Review of Systems: Yes all other systems are reviewed and are negative PMFSH Past Medical History Medical History Anxiety and depression Arthritis Hx of migraines Hypothyroid Surgical History History of laparoscopic appendectomy Hx of colonoscopy Hx of hysterectomy Social History Social History Patient Tobacco Use Status: Former Tobacco user Advance Directives: No Advance Directives Information Provided: No Physical Exam 2 Vital Signs: Vital Signs: Last Vital Signs Temp 98.1 F 12/29/23 12:49 Pulse 63 12/29/23 12:49 Resp 18 12/29/23 12:49 BP 129/79 12/29/23 12:49 Pulse Ox 98 12/29/23 12:49 O2 Del Method Room Air 12/29/23 12:49 BMI result Body Mass Index 24.4 Appearance: Alert. Oriented X3. No acute distress. Neck: Normal inspection. Neck supple. CVS: Normal heart rate and rhythm. Pulses normal. Respiratory: No respiratory distress. Breath sounds normal. Abdomen: Soft and nontender. +BS x4. Nondistended. Skin: Skin warm and dry. Normal skin color. Normal skin turgor. No rashes. Back: tender to palpation of right lumbar region. No swelling, erythema, or palpable masses. No CVA tenderness. negative straight leg raise test Extremities: No lower extremity edema. No joint swelling. Neuro/psych: Oriented X 3. Normal ambulation and gait Medical Decision Making Medical Decision Making MDM Narrative: Jessica is a 63 year old female with history of arthritis and hypothyroidism who presents today for evaluation of right lower back pain for 2 weeks. Pain is burning and aching in nature, exacerbated with movement. On exam, she has full ROM with lateral bending, flexion, extension but reports moderate pain. Negative SLR bilaterally. Low suspicion for nephrolithiasis, UTI considering negative/ noninfectious UA. Low suspicion for cauda equina with lack of urinary incontinence, intact neuro sensation. On reevaluation, she has worsened lumbar pain that is radiating upwards with movement after laying supine and sitting up. Pain is reproduction with palpation. Presentation is most consistent with lumbar muscular sprain/strain. Comfortable to discharge home with NSAIDs and muscle relaxant. Instructed to follow up with primary care and strict return precautions. Differential Diagnosis Differential Diagnoses: The differential diagnosis associated with the presentation includes muscular sprain/strain, herniated disc, UTI, pyelonephritis, nephrolithiasis, low suspicion for cauda equina Lab Data MDM Lab Attestation statement: I reviewed the patient's lab results. 12/29/23 11:30 12/29/23 11:30 Labs: Lab Results 12/29/23 12/29/23 Range/Units 11:30 11:47 WBC 6.6 (4.8-10.8) X10*3/uL RBC 3.88 L (4.20-5.50) X10*6/uL Hgb 12.1 (12.0-16.0) g/dl Hct 36.2 L (37.0-47.0) % MCV 93.3 (80.0-98.0) fL MCH 31.2 (27.0-33.0) pg MCHC 33.4 (31.0-35.0) g/dl RDW 12.2 (11.0-16.0) % Plt Count 314 (160-400) X10*3/uL MPV 8.7 L (9.4-12.3) fL Immature Gran % (Auto) 0.2 (0.0-0.4) % Neut % (Auto) 60.9 (45-73) % Lymph % (Auto) 27.8 (20-40) % [place] % (Auto) 7.8 (2-11) % Eos % (Auto) 1.8 (0-4) % Baso % (Auto) 1.5 (0-2) % Lymph # (Auto) 1.8 (1.2-4.9) X10*3/uL [place] # (Auto) 0.5 (0.1-1.2) X10*3/uL Eos # (Auto) 0.1 (0.0-0.4) X10*3/uL Baso # (Auto) 0.1 (0.0-0.2) X10*3/uL Abs Immat Gran (auto) 0.01 (0.00-0.03) X10*3/uL Absolute Neuts (auto) 4.0 (2.0-8.3) x10*3/uL Absolute Nucleated RBC 0.000 (0.0-0.012) X10*3/uL Nucleated RBC % (auto) 0.0 (0.0-0.2) /100WBC Sodium 140 (135-145) mmol/L Potassium 3.8 (3.3-5.1) mmol/L Chloride 107 (96-108) mmol/L Carbon Dioxide 28 (22-29) mmol/L Anion Gap 9 L (12-20) BUN 8 L (9-16) mg/dL Creatinine 0.66 (0.5-1.4) mg/dL Estim Creat Clear Calc 83.7 Estimated GFR > 60 Random Glucose 97 (60-115) mg/dL Calcium 10.1 D (8.4-10.2) mg/dL Total Bilirubin 0.5 (0.0-1.0) mg/dL Direct Bilirubin 0.2 (0.0-0.5) mg/dL AST 18 (5-31) U/L ALT 12 (0-31) U/L Alkaline Phosphatase 86 (39-117) U/L Total Protein 6.9 (6.5-8.0) g/dL Albumin 4.2 (3.5-5.0) g/dL Urine Color Yellow Urine Appearance Clear Urine pH 8.0 (5.0-9.0) Ur Specific [place] 1.010 (1.005-1.025) Urine Protein Negative (Neg-Trace) mg/dL Urine Glucose (UA) Negative (Negative) mg/dL Urine Ketones Negative (Negative) mg/dL Urine Blood Negative (Negative) Urine Nitrite Negative (Negative) Ur Leukocyte Esterase Negative (Negative) External Record Review External record reviewed: Office record, Outpatient record and Prior outpatient labs Tests considered The following testing was considered but not selected: CT scan considered but exam and labs reassuring Prescription Management I considered prescription management with: Pain Medication Critical Care Time Critical Care Time Critical Care Time: No Discharge Plan Discharge Clinical Impression: Strain of lumbar region Qualifiers: Encounter type: initial encounter Qualified Code(s): S39.012A - Strain of muscle, fascia and tendon of lower back, initial encounter Patient Disposition: Home, Self-Care Instructions: Low Back Strain (ED), Lower Back Exercises (ED) Additional Instructions: Your pain is most likely due to muscle strain and spasm. No bending, lifting or twisting. Use ice several times per day for 20 minutes at a time for the next 48 hours and then change to heat. Take medications as prescribed to help with pain and discomfort. Follow up with your Primary Care Doctor this week. If your pain worsens, if you develop new numbness, tingling, weakness, loss of function or incontinence call 911 or come back to the ER right away for evaluation. Prescriptions: New cyclobenzaprine 10 mg tablet 10 mg PO TID PRN (Reason: muscle spasm) Qty: 10 0RF ibuprofen 600 mg tablet 600 mg PO Q8H PRN (Reason: pain) Qty: 14 0RF lidocaine 5 % adhesive patch,medicated 1 patch topical DAILY Qty: 15 0RF Rx Instructions: leave on most painful area for up to 12 hrs No Action buspirone 5 mg tablet 1 tab PO BID levothyroxine [Synthroid] 88 mcg tablet 1 tab PO DAILY quetiapine [Seroquel] 100 mg Tablet 100 mg PO BEDTIME venlafaxine 100 mg Tablet 100 mg PO DAILY lorazepam 1 mg Tablet 1 mg PO BID PRN (Reason: Anxiety) omega 7-vru-xwz-fish oil [Fish Oil] 1,200 (144-216) mg Capsule PO acetaminophen 325 mg Tablet 325 mg PO QID PRN (Reason: Pain (Scale Score 1-3)) prednisone 10 mg tablets,dose pack See Taper PO DAILY Qty: 21 0RF Taper: Prednisone 40 mg daily for 2 Days and 0 Hour 30 mg daily for 2 Days and 0 Hour 20 mg daily for 2 Days and 0 Hour 10 mg daily for 2 Days and 0 Hour prednisone 20 mg tablet 60 mg PO DAILY 7 Days Qty: 21 0RF Referrals: Rick Ernst MD [Primary Care Provider] - Interventions: ED Discharge Assessment Last Done: 12/29/23 12:49 Discharge Date/Time: 12/29/23 12:50 Print Language: Romanian
[2023-12-29 11:33] LABS: MANUAL DIFF FLAG NO
[2023-12-29 11:38] LABS: Basophils Absolute Auto 0.1 X10*3/uL (0.0-0.2); Basophils Percent Auto 1.5 % (0-2); Eosinophils Absolute Auto 0.1 X10*3/uL (0.0-0.4); Eosinophils Percent Auto 1.8 % (0-4); Hematocrit 36.2 % (37.0-47.0); Hemoglobin 12.1 g/dl (12.0-16.0); Imm Gran Abs Auto 0.01 X10*3/uL (0.00-0.03); Imm Gran Pct Auto 0.2 % (0.0-0.4); Lymphocytes Absolute Auto 1.8 X10*3/uL (1.2-4.9); Lymphocytes Percent Auto 27.8 % (20-40); Mean Corpuscular HGB Conc 33.4 g/dl (31.0-35.0); Mean Corpuscular Hemoglobin 31.2 pg (27.0-33.0); Mean Corpuscular Volume 93.3 fL (80.0-98.0); Mean Platelet Volume 8.7 fL (9.4-12.3); Monocytes Absolute Auto 0.5 X10*3/uL (0.1-1.2); Monocytes Percent Auto 7.8 % (2-11); Neutrophils Percent Auto 60.9 % (45-73); Platelet Count 314 X10*3/uL (160-400); Red Blood Count 3.88 X10*6/uL (4.20-5.50); Red Cell Distribution Width 12.2 % (11.0-16.0); White Blood Count 6.6 X10*3/uL (4.8-10.8)
[2023-12-29 11:53] LABS: Alanine Aminotransferase 12 U/L (0-31); Albumin Level 4.2 g/dL (3.5-5.0); Alkaline Phosphatase 86 U/L (39-117); Anion Gap 9 (12-20); Aspartate Amino Transferase 18 U/L (5-31); Bilirubin Direct 0.2 mg/dL (0.0-0.5); Bilirubin Total 0.5 mg/dL (0.0-1.0); Blood Urea Nitrogen 8 mg/dL (9-16); Calcium 10.1 mg/dL (8.4-10.2); Carbon Dioxide 28 mmol/L (22-29); Chloride 107 mmol/L (96-108); Creatinine Clr Calc Pharmacy 83.7; Estimated Glomerular Filt Rate > 60; Glucose Random 97 mg/dL (60-115); Potassium 3.8 mmol/L (3.3-5.1); Sodium 140 mmol/L (135-145); Total Protein 6.9 g/dL (6.5-8.0)
[2023-12-29 11:54] LABS: Appearance Urine Clear; Color Urine Yellow; Glucose Urine UA Negative (Negative); Leukocyte Esterase Urine Negative (Negative); Nitrite Urine Negative (Negative); Urine Blood Negative (Negative); Urine Ketones Negative (Negative); Urine Protein Negative (Neg-Trace)
[2023-12-29 12:49] VITALS: BP 129/79; PULSE 63; RESP 18; TEMP 36.7; O2SAT 98
== END 2023-12-29 12:50 | disposition home or self-care (01) ==
PROVIDERS: Physician Assistant; Emergency Provider Emergency Medicine; PCP Internal Medicine
DX: S39.012A Strain of muscle, fascia and tendon of lower back, initial encounter (principal); X58.XXXA Exposure to other specified factors, initial encounter; Y93.9 Activity, unspecified; Y92.9 Unspecified place or not applicable; Y99.8 Other external cause status; Z79.899 Other long term (current) drug therapy
CPT/HCPCS: 36415; 80048; 80076; 81003; 85025; 99282; 99283

== ENCOUNTER 2024-04-28 21:09 | Emergency (ER) | payer OTHER, SELFPAY ==
--- NOTE | ~2024-04-28 | XR_ITS ---
EXAMINATION: XR CHEST 2 VIEWS CLINICAL INFORMATION: Cough. COMPARISON: Chest radiographs dated 12/01/2011. TECHNIQUE: Frontal and lateral views of the chest were obtained. FINDINGS: The heart, great vessels, pulmonary vasculature and mediastinum are normal. The lungs show no focal infiltrate, effusion or pneumothorax. There is biapical pleural thickening. There is no acute osseous abnormality. There is a mild lower thoracic dextroscoliosis. XR/XR chest 1V IMPRESSION: No active cardiopulmonary disease.
[2024-04-28 21:36] VITALS: BP 131/63; PULSE 84; RESP 16; TEMP 37.1; O2SAT 98; BMI 23.2
[2024-04-28 22:21] LABS: MANUAL DIFF FLAG NO
[2024-04-28 22:22] LABS: Basophils Absolute Auto 0.1 X10*3/uL (0.0-0.2); Basophils Percent Auto 0.7 % (0-2); Eosinophils Absolute Auto 0.1 X10*3/uL (0.0-0.4); Eosinophils Percent Auto 1.2 % (0-4); Hematocrit 37.1 % (37.0-47.0); Hemoglobin 12.4 g/dl (12.0-16.0); Imm Gran Abs Auto 0.01 X10*3/uL (0.00-0.03); Imm Gran Pct Auto 0.1 % (0.0-0.4); Lymphocytes Absolute Auto 2.5 X10*3/uL (1.2-4.9); Lymphocytes Percent Auto 34.3 % (20-40); Mean Corpuscular HGB Conc 33.4 g/dl (31.0-35.0); Mean Corpuscular Hemoglobin 31.1 pg (27.0-33.0); Mean Platelet Volume 8.7 fL (9.4-12.3); Monocytes Absolute Auto 0.8 X10*3/uL (0.1-1.2); Monocytes Percent Auto 11.5 % (2-11); Neutrophils Absolute Auto 3.8 x10*3/uL (2.0-8.3); Neutrophils Percent Auto 52.2 % (45-73); Platelet Count 302 X10*3/uL (160-400); Red Blood Count 3.99 X10*6/uL (4.20-5.50); Red Cell Distribution Width 12.4 % (11.0-16.0); White Blood Count 7.3 X10*3/uL (4.8-10.8)
[2024-04-28 22:36] LABS: Anion Gap 14 (12-20); Blood Urea Nitrogen 20 mg/dL (9-16); Calcium 9.1 mg/dL (8.4-10.2); Carbon Dioxide 26 mmol/L (22-29); Chloride 105 mmol/L (96-108); Creatinine Clr Calc Pharmacy 64.3; Estimated Glomerular Filt Rate > 60; Glucose Random 100 mg/dL (60-115); Potassium 3.8 mmol/L (3.3-5.1); Sodium 141 mmol/L (135-145)
[2024-04-28 23:00] LABS: Influenza A PCR NEGATIVE (Negative); Influenza B PCR NEGATIVE (Negative); Resp Syncy Virus RNA Qual PCR NEGATIVE (Negative); SARS COV2 PCR INHOUSE POSITIVE (Negative)
[2024-04-29 00:08] VITALS: BP 135/62; PULSE 86; RESP 16; TEMP 36.8; O2SAT 99
--- NOTE | 2024-04-29 00:49 | ED.GENADULT ---
HPI - General Adult General Chief complaint: Upper Respiratory Symptoms Stated complaint: cough, headache, congested Time Seen by Provider: 04/29/24 00:49 History of Present Illness ED Provider: Anirudh GORDILLO narrative: Patient is a 63-year-old woman who has felt unwell for about 3 days. She has been coughing a great deal. She has also had sneezing and runny nose and a headache. She says that her brother has been sick with similar symptoms the week before. Patient says she has never had a COVID vaccine. The patient says she is generally in good health. She says levothyroxine is our only prescription medication at the moment. She denies being a smoker. Related Data Home Medications ?Medication ?Instructions ?Recorded ?Confirmed buspirone 5 mg tablet 1 tab PO BID 06/30/21 06/30/21 levothyroxine 88 mcg tablet 1 tab PO DAILY 06/30/21 06/30/21 (Synthroid) lorazepam 1 mg tablet 1 mg PO BID PRN Anxiety 07/01/21 07/01/21 omega 1-hqa-qeu-fish oil 1,200 mg cap PO 07/01/21 (144 mg-216 mg) capsule (Fish Oil) quetiapine 100 mg tablet (Seroquel) 100 mg PO BEDTIME 07/01/21 07/01/21 venlafaxine 100 mg tablet 100 mg PO DAILY 07/01/21 07/01/21 acetaminophen 325 mg tablet 325 mg PO QID PRN Pain (Scale 07/07/21 07/07/21 Score 1-3) Previous Rx's ?Medication ?Instructions ?Recorded prednisone 20 mg tablet 60 mg (3 x 20 mg) PO DAILY 7 days 01/29/22 #21 tabs prednisone 10 mg tablets in a dose See Taper PO DAILY #21 ea 02/03/22 pack cyclobenzaprine 10 mg tablet 10 mg PO TID PRN muscle spasm #10 12/29/23 tabs ibuprofen 600 mg tablet 600 mg PO Q8H PRN pain #14 tabs 12/29/23 lidocaine 5 % topical patch 1 patch topical DAILY #15 ea 12/29/23 nirmatrelvir 300 mg (150 mg See Rx Instructions PO .COMPLEX 04/29/24 x2)-ritonavir 100 mg tablet,dose #30 ea pack (Paxlovid) Allergies Allergy/AdvReac Type Severity Reaction Status Date / Time oxycodone [From OxyContin] Allergy Vomiting Verified 04/28/24 21:39 DUST Allergy Unknown CONGESTION; Uncoded 04/28/24 21:39 ITCHINESS Environmental Allergy Unknown STUFFY NOSE Uncoded 04/28/24 21:39 Review of Systems Review of Systems: Yes all other systems are reviewed and are negative PMFSH Past Medical History Medical History Anxiety and depression Arthritis Hx of migraines Hypothyroid Surgical History History of laparoscopic appendectomy Hx of colonoscopy Hx of hysterectomy Social History Social History Patient Tobacco Use Status: Former Tobacco user Advance Directives: No Advance Directives Information Provided: No Do you have a plan to hurt others: No Plan Physical Exam ED Vital Signs: Vital Signs - 24 hr 04/28/24 21:36 04/29/24 00:08 Temperature 98.8 F 98.3 F Pulse Rate 84 86 Respiratory Rate 16 16 Blood Pressure 131/63 135/62 Pulse Oximetry 98 99 Oxygen Delivery Method Room Air Room Air BMI result Body Mass Index 23.2 Const Other: The patient is awake and alert. She has a slightly hoarse voice but does not seem acutely ill otherwise. HENMT Other: No facial asymmetry. Eyes Other: Pupils are round equal, conjunctivae are clear Resp Effort & Inspection: normal respiratory effort Auscultation: clear to auscultation bilaterally Cardio Rate: regular rate Rhythm: regular rhythm Heart sounds: S1 normal heart sound present and S2 normal heart sound present Skin General skin exam: no rashes or lesions noted Neuro Other: The patient is awake and alert with a normal mental status and normal cognition. Speech is clear. Eye movements intact. She moves her extremities normally and appropriately. She seems grossly neurologically intact and nontoxic. Extrem Other: No peripheral edema Medical Decision Making Medical Decision Making MDM Narrative: The patient is a 63-year-old woman presents with symptoms of an upper respiratory infection that she has had for about 3 days. She has tested positive for COVID. Other labs are unremarkable and she has a negative chest x-ray. The patient has never been vaccinated for COVID. The patient would like to be prescribed Paxlovid. The only medication she is currently taking is levothyroxine so I do not see any contraindication the Paxlovid in this patient. She will be discharged to cook pickled meat the prescription for Paxlovid. She should stay in touch with the regular doctor for additional advice as needed. Lab Data 04/28/24 22:16 04/28/24 22:16 Labs: Lab Results 04/28/24 Range/Units 22:16 WBC 7.3 (4.8-10.8) X10*3/uL RBC 3.99 L (4.20-5.50) X10*6/uL Hgb 12.4 (12.0-16.0) g/dl Hct 37.1 (37.0-47.0) % MCV 93.0 (80.0-98.0) fL MCH 31.1 (27.0-33.0) pg MCHC 33.4 (31.0-35.0) g/dl RDW 12.4 (11.0-16.0) % Plt Count 302 (160-400) X10*3/uL MPV 8.7 L (9.4-12.3) fL Immature Gran % (Auto) 0.1 (0.0-0.4) % Neut % (Auto) 52.2 (45-73) % Lymph % (Auto) 34.3 (20-40) % [place] % (Auto) 11.5 H (2-11) % Eos % (Auto) 1.2 (0-4) % Baso % (Auto) 0.7 (0-2) % Lymph # (Auto) 2.5 (1.2-4.9) X10*3/uL [place] # (Auto) 0.8 (0.1-1.2) X10*3/uL Eos # (Auto) 0.1 (0.0-0.4) X10*3/uL Baso # (Auto) 0.1 (0.0-0.2) X10*3/uL Abs Immat Gran (auto) 0.01 (0.00-0.03) X10*3/uL Absolute Neuts (auto) 3.8 (2.0-8.3) x10*3/uL Absolute Nucleated RBC 0.000 (0.0-0.012) X10*3/uL Nucleated RBC % (auto) 0.0 (0.0-0.2) /100WBC Sodium 141 (135-145) mmol/L Potassium 3.8 (3.3-5.1) mmol/L Chloride 105 (96-108) mmol/L Carbon Dioxide 26 (22-29) mmol/L Anion Gap 14 (12-20) BUN 20 H (9-16) mg/dL Creatinine 0.86 (0.5-1.4) mg/dL Estim Creat Clear Calc 64.3 Estimated GFR > 60 Random Glucose 100 (60-115) mg/dL Calcium 9.1 D (8.4-10.2) mg/dL Influenza Type A (PCR) NEGATIVE (Negative) Influenza Type B (PCR) NEGATIVE (Negative) RSV RNA Qual (PCR) NEGATIVE (Negative) SARS-CoV-2 RNA (RT-PCR) POSITIVE A (Negative) Discharge Plan Discharge Clinical Impression: COVID-19 Patient Disposition: Home, Self-Care Instructions: COVID-19 (Coronavirus Disease 2019) (ED) Additional Instructions: You have tested positive for COVID. I have sent a prescription for the medication Paxlovid which may help reduce the symptoms of COVID. Please cook pickled meat this prescription first thing in the morning and start taking it as soon as you pick it up. Please plan on isolating yourself fairly strictly for the first 5 days. If after 5 days you are feeling somewhat better and not having fevers you may go outside but make sure that you wear a mask when encountering other people for another 5 days. Please stay in touch with your regular doctor for additional advice as needed. Return to the emergency room if you feel significantly short of breath or significantly ill otherwise. Prescriptions: New Paxlovid 300 mg (150 mg x 2)-100 mg tablets,dose pack See Rx Instructions .ROUTE .COMPLEX Qty: 30 0RF Rx Instructions: take TWO 150 mg tablets of nirmatrelvir with ONE 100 mg tablet of ritonavir twice daily for 5 days No Action buspirone 5 mg tablet 1 tab PO BID levothyroxine [Synthroid] 88 mcg tablet 1 tab PO DAILY quetiapine [Seroquel] 100 mg Tablet 100 mg PO BEDTIME venlafaxine 100 mg Tablet 100 mg PO DAILY lorazepam 1 mg Tablet 1 mg PO BID PRN (Reason: Anxiety) omega 7-slh-rgx-fish oil [Fish Oil] 1,200 (144-216) mg Capsule PO acetaminophen 325 mg Tablet 325 mg PO QID PRN (Reason: Pain (Scale Score 1-3)) prednisone 10 mg tablets,dose pack See Taper PO DAILY Qty: 21 0RF Taper: Prednisone 40 mg daily for 2 Days and 0 Hour 30 mg daily for 2 Days and 0 Hour 20 mg daily for 2 Days and 0 Hour 10 mg daily for 2 Days and 0 Hour prednisone 20 mg tablet 60 mg PO DAILY 7 Days Qty: 21 0RF cyclobenzaprine 10 mg tablet 10 mg PO TID PRN (Reason: muscle spasm) Qty: 10 0RF ibuprofen 600 mg tablet 600 mg PO Q8H PRN (Reason: pain) Qty: 14 0RF lidocaine 5 % adhesive patch,medicated 1 patch topical DAILY Qty: 15 0RF Rx Instructions: leave on most painful area for up to 12 hrs Referrals: Rick Ernst MD [Primary Care Provider] - (COVID-19) Print Language: Thai
[2024-04-29] MEDS: Ibuprofen 600 MG TABLET PO (01:10)
[2024-04-29] MEDS: Acetaminophen 325 MG TABLET 975 MG PO (01:10)
[2024-04-29 01:17] VITALS: BP 135/62; PULSE 86; RESP 16; TEMP 36.8; O2SAT 99
== END 2024-04-29 01:18 | disposition home or self-care (01) ==
PROVIDERS: Emergency Provider Emergency Medicine; PCP Internal Medicine
DX: U07.1 COVID-19 (principal); R05.9 Cough, unspecified; R51.9 Headache, unspecified
CPT/HCPCS: 0241U; 36415; 71045; 80048; 85025; 99283

== ENCOUNTER 2024-05-14 13:00 | Outpatient (RCR) | payer OTHER, SELFPAY ==
--- NOTE | 2024-04-05 16:52 | MHC.PT.EP ---
[facility] [place] Office [place] Office [place] Office [address] [phone] F: [phone] F: [phone] F: [phone] F: [phone] Physical Therapy Plan of Care Date of Evaluation: 04/05/24 Date of Surgery: Diagnosis: Cervicalgia. Assessment: Pt is a 63 RHD y/o female with Hx of OA and migraine referred to PT for eval and treat of cervicalgia which is resulting in decreased tolerance for driving, lifting objects of weight, reading as well as frequent HOLLY and disturbed sleep secondary to mild decreased cervical ROM, increased cervical accessory tissue tension, decreased posterior scapular musculature, Pt is deemed an appropriate candidate to receive skilled PT services to address their physical impairments in order to improve their functional ability. Frequency and Duration: The patient will be seen 2 x/ wk x 4 wks. Short Term Goals: initiate home program. Improve baseline pain to < 6/10; initial: 7-9/10. Claims Correspondence Clerk Goals: I with home program. Pt will report only mildly disturbed sleep 1-2 hours; initial greatly disturbed 3-5 hours. Improve B shoulder MMT by at least 1/2 MMT grade. Treatment Plan: Modalities to reduce pain, spasms and effusion. Manual therapy to restore motion and function. Therapeutic exercise to improve strength and flexibility. Neuromuscular re-education for posture and balance. Therapeutic activities to return to functional activities of daily living. Electronically signed by: Arvind Payne PT. Please sign and return to therapist. Thank you for your referral.
--- NOTE | 2024-05-14 14:05 | MHC.PT.DC ---
[facility] Office [place] Office [place] Office [address] [phone] F: [phone] F: [phone] F: [phone] F: [phone] Physical Therapy Discharge Report Diagnosis: Cervicalgia. Date of Surgery: Date of Evaluation: 04/05/24 Date of Discharge: 05/14/24 Treatments to Date: 7 Cancellations to Date: No Shows to Date: Discharge Status: Achieved Goals Improved Function Independent with HEP Discharge Summary: Jessica has been an active participant in her therapy with good home program compliance. We are in agreement with DC today as she has met all of her therapeutic goals, is managed with her initial symptoms, and is independent with their home program for self management. Electronically signed by: Arvind Payne PT. Please sign and return to therapist. Thank you for your referral.
== END 2024-05-14 14:05 | disposition home or self-care (01) ==
LOC: HO.PT 13:00
PROVIDERS: PCP Internal Medicine; Visit Provider Internal Medicine
DX: M54.2 Cervicalgia (principal)
CPT/HCPCS: 97014; 97110; 97140; 97161

== ENCOUNTER 2024-11-08 09:11 | Emergency (ER) | payer OTHER, SELFPAY ==
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
[2024-11-08 09:28] VITALS: BP 114/49; PULSE 71; RESP 18; TEMP 36.9; O2SAT 97; BMI 23.1
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
[2024-11-08] MEDS: diazePAM 2 MG TABLET PO (13:19)
--- OUTSIDE RECORDS SUMMARY | 2024-11-08 14:18 | XMS_ITS | Patient Health Record ---
Author Organization [facility] Address [address] [place] [address] Care Team Providers Care Geographic Area Intelligence Officer Name Role Phone Rick Ernst MD Primary Care Provider Kameron Heaton Jr Unavailable ALLERGIES No Known Allergies REASON FOR REFERRAL No Information MEDICATIONS Medication SIG (Take, Route, Frequency, Duration) Notes Start Date End Date Status MiraLax (colon prep) 17 GM/SCOOP mixed with Gatorade or Crystal Light Orally begin at 5:00 p.m. the day before the procedure for 1 day 06/17/2021 Active SEROquel 100 MG 1 tablet Orally prn Active Venlafaxine HCl 100 MG 1 tablet with sameer d Orally Once a day for 30 day(s) Active LORazepam 1 MG 1 tablet as needed O rally prn Active Fish Oil 1200 MG 1 capsule Orally prn Active Synthroid 112 MCG 1 tablet Orally Once a day Active IMMUNIZATIONS Vaccine Route Administration Date Status Comme nts Influenza Unknown 01/17/2019 Refused Influenza Unknown 06/17/2021 Refused SOCIAL HISTORY Sex Assigned At : Social History Observation Description Sex Assigned At Unknown PROBLEMS Problem Type ICD Code Onset Dates Problem Status W/U Status Risk SNOMED Code Notes Problem Colon cancer screening (Z12.11) Active confirmed 265741148 Problem Change in bowel habits (R19.4) Active confirmed 113443841 Problem Irritable bowel syndrome with diarrhea (K58.0) Active confirmed 821489753 PLAN OF TREATMENT Future Test Test Name Order Date COLONOSCOPY 01/29/2015 COLONOSCOPY 06/17/2021 Insurance Providers Payer Name Payer Address Payer Phone Subscriber Number Group Number Insured Name Patient Relationship to Insured Coverage Start Date Coverage End Date [employer] [address] [place] [address] [id number] TOM AGGARWAL Self - patient is the insured MEDICAID OF [facility] [address] [place] [phone] [id number] TOM AGGARWAL Self - patient is the insured MEDICAL (GENERAL) HISTORY Medical History History ICD Code colonoscopy 03/05/15, five-ye ar followup for personal history of colon polyps. Hypothyroidism environmental allergies Denies VT,DM,CVA,Lung disease,renal dise ase Surgical History Surgery Date(Month/Year) hysterectomy for cervical cancer appendectomy
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
[2024-11-08 15:18] VITALS: BP 130/53; PULSE 73; RESP 18; TEMP 36.6; O2SAT 98
[2024-11-08 16:08] VITALS: BP 130/53; PULSE 73; RESP 18; TEMP 36.6; O2SAT 98
== END 2024-11-08 16:08 | disposition home or self-care (01) ==
PROVIDERS: Emergency Provider Emergency Medicine Emergency Medical Services; PCP Internal Medicine
DX: S63.502A Unspecified sprain of left wrist, initial encounter (principal); V43.52XA Car driver injured in collision with other type car in traffic accident, initial encounter; R51.9 Headache, unspecified; M54.6 Pain in thoracic spine; M54.2 Cervicalgia; Y93.89 Activity, other specified; Y92.414 Local residential or business street as the place of occurrence of the external cause; Y99.9 Unspecified external cause status
CPT/HCPCS: 70450; 72125; 72128; 73110; 73130; 99283; 99284

== ENCOUNTER → 2024-11-08 12:55 | Outpatient (BNV) | payer OTHER, SELFPAY | PROVIDERS: Emergency Provider Emergency Medicine Emergency Medical Services; PCP Internal Medicine; Visit Provider Radiology Diagnostic Radiology | DX: M47.892 Other spondylosis, cervical region (principal); M47.894 Other spondylosis, thoracic region; S09.90XA Unspecified injury of head, initial encounter; M18.12 Unilateral primary osteoarthritis of first carpometacarpal joint, left hand | CPT/HCPCS: 70450; 72125; 72128; 73110; 73130 ==

== ENCOUNTER 2024-12-13 13:57 | Outpatient (AMB) | payer OTHER, MEDICARE, SELFPAY ==
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
[2024-12-13 14:05] VITALS: BP 138/80; PULSE 79; O2SAT 98
--- OUTSIDE RECORDS SUMMARY | 2024-12-13 16:39 | XMS_ITS | Patient Health Record ---
Author Organization [facility] Address [address] [place] [address] Care Team Providers Care Oceanography Professor Name Role Phone Rick Ernst MD Primary Care Provider Kameron Heaton Jr Unavailable Allergies No Known Allergies Reason For Referral No Information Medications Medication SIG (Take, Route, Frequency, Duration) Notes [...] 1 tablet Orally Once a day Active Immunizations Vaccine Route Administration Date Status Comme nts Influenza Unknown 01/17/2019 Refused Influenza Unknown 06/17/2021 Refused Problems Problem Type SNOMED Code ICD Code Onset Dates Problem Status W/U Status Risk Notes Problem 372007979 Colon cancer screening (Z12.11) Active confirmed Problem 439173934 Change in bowel habits (R19.4) Active confirmed Problem [id number] Irritable bowel syndrome with diarrhea (K58.0) Active confirmed Plan Of Treatment Future Test Test Name Order Date COLONOSCOPY 01/29/2015 COLONOSCOPY 06/17/2021 Insurance Providers Payer Name Payer Address Payer Phone Subscriber Number Group Number Insured Name Patient Relationship to Insured Coverage Start Date Coverage End Date [facility] [address] [place] [address] [phone] [id number] TOM AGGARWAL Self - patient is the insured MEDICAID OF [facility] [address] [place] [address] [id number] TOM AGGARWAL Self - patient is the insured Medical (General) History Medical History History ICD Code colonoscopy 03/05/15, five-ye ar followup for personal history of colon polyps. Hypothyroidism environmental allergies Denies AR,DM,CVA,Lung disease,renal dise ase Surgical History Surgery Date(Month/Year) hysterectomy for cervical cancer appendectomy
== END 2024-12-13 14:26 | disposition home or self-care (01) ==
PROVIDERS: PCP Internal Medicine; Visit Provider Nurse Practitioner Family
DX: M54.2 Cervicalgia (principal); R51.9 Headache, unspecified

== ENCOUNTER 2025-03-01 10:18 | Outpatient (AMB) | payer MEDICARE, SELFPAY ==
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
[2025-03-01 10:32] VITALS: BP 120/70; PULSE 75; TEMP 36.6; O2SAT 98; BMI 24.1
--- OUTSIDE RECORDS SUMMARY | 2025-03-01 11:04 | XMS_ITS | Patient Health Record ---
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 Role Phone Rick Ernst MD Primary Care Provider Kameron Heaton Jr Unavailable [phone] Allergies No Known Allergies Reason For Referral [...] Problem Status W/U Status Risk Notes Problem [id number] Colon cancer screening (Z12.11) Active confirmed Problem [id number] Change in bowel habits (R19.4) Active confirmed Problem 717011315 Irritable bowel syndrome with diarrhea (K58.0) Active confirmed Plan Of Treatment Future Test Test Name Order Date COLONOSCOPY 01/29/2015 COLONOSCOPY 06/17/2021 Insurance Providers Payer Name Payer Address Payer Phone Subscriber Number Group Number Insured Name Patient Relationship to Insured Coverage Start Date Coverage End Date [facility] [address] [place] [address] [id number] TOM AGGARWAL Self - patient is the insured MEDICAID OF [facility] [address] [place] [address] [id number] TOM AGGARWAL Self - patient is the insured Medical (General) History Medical History History ICD Code colonoscopy 03/05/15, five-ye ar followup for personal history of colon polyps. Hypothyroidism environmental allergies Denies IN,DM,CVA,Lung disease,renal dise ase Surgical History Surgery Date(Month/Year) hysterectomy for cervical cancer appendectomy
== END 2025-03-01 11:25 | disposition home or self-care (01) ==
LOC: HO.HMCHD 10:18
PROVIDERS: PCP Internal Medicine; Visit Provider Internal Medicine
DX: F41.9 Anxiety disorder, unspecified (principal); F32.A Depression, unspecified; E03.9 Hypothyroidism, unspecified; M54.2 Cervicalgia; R07.9 Chest pain, unspecified

== ENCOUNTER → 2025-03-01 10:18 | Outpatient (BNVA) | payer MEDICARE, SELFPAY | PROVIDERS: PCP Internal Medicine; Visit Provider Internal Medicine | DX: E03.9 Hypothyroidism, unspecified (principal); F41.9 Anxiety disorder, unspecified; F32.A Depression, unspecified; M54.2 Cervicalgia; R07.9 Chest pain, unspecified; Z86.69 Personal history of other diseases of the nervous system and sense organs; Z79.899 Other long term (current) drug therapy | CPT/HCPCS: 96127; 99202 ==

== ENCOUNTER 2025-03-12 11:00 | Outpatient (RCR) | payer OTHER, MEDICARE, SELFPAY ==
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
== END 2025-03-12 14:47 | disposition home or self-care (01) ==
LOC: HO.PT 11:00
PROVIDERS: Visit Provider Nurse Practitioner Family
DX: M54.2 Cervicalgia (principal); M54.6 Pain in thoracic spine
CPT/HCPCS: 97014; 97110; 97140; 97162

== ENCOUNTER 2025-05-02 13:30 | Outpatient (RCR) | payer OTHER, MEDICARE, SELFPAY ==
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
--- NOTE | 2025-05-03 12:59 | MHC.OT.DC ---
[facility] Office [address] [phone] F: [phone] F: [phone] Occupational Therapy Discharge Note Patient Name: Jessica Vinay Richmond Provider: Deonna Yee Diagnosis: (L)Wrist pain Date of Surgery: Date of Evaluation: 03/21/25 Date of Discharge: Treatments to Date: 10 Cancellations to Date: No Shows to Date: Discharge Status: Discharge Summary: Patient is d/c'd from skilled OT as she has achieved her maximal potential during therapy and excellent progress towards her LTGs. 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 Electronically Signed By: ASHISH Ramirez/Tony, ESTHERT Reviewed/agree with student documentation: Therapist: Please Sign and return to therapist, thank you for your referral.
== END 2025-05-03 12:59 | disposition home or self-care (01) ==
LOC: HO.OT 13:30
PROVIDERS: PCP Internal Medicine; Visit Provider Internal Medicine
DX: M25.532 Pain in left wrist (principal)
CPT/HCPCS: 97035; 97110; 97140; 97165

== ENCOUNTER → 2025-05-24 14:54 | Outpatient (AMB) | payer OTHER, MEDICARE, SELFPAY ==
--- OUTSIDE RECORDS SUMMARY | 2023-10-25 11:00 | XMS_ITS | Continuity of Care Document ---
Author Organization [facility] Address [address] [place] [address] [address] [place] [address] Phone Care Team Providers Care Tow Motor Driver Name Role Phone Amadeo MCGEE, SELVIN, ABHAY, [...] Established 15 Mins [facility], [address] [place] [address] Dr Brennan [address] 1000, [place], [id number], [place] tel:[phone] [facility] [place] Chronic venous hypertension (idiopathic) without complications of left lower extremity 4 Amadeo MCGEE, SELVIN, ABHAY Briggs. [address] [facility], [facility] 302, [facility] [place], [id number], [place]. tel:[phone] Referring Provider: Rick Ernst MD, [address] [place] [address] Dr Reinaldo [address] [place] [address], [place], [address]. tel:[phone] [facility], [address] [place] [address] Dr Brennan 1000[address] 1000Andrew [place], [id number], [place] tel:[phone] [facility] [place] Varicose veins of left lower extremity with other complications 3 Cali Arias. [address] [facility], [address], [place], [place], [id number], [place]. tel:[phone] Referring Provider: Rick Ernst MD, [address] [place] [address] Dr [address], [place], [address]. tel:[phone] [facility], [address] [place] [address] Dr Brennan 1000Suite Andrew Or[place]z [place], [id number], [place] tel:[phone] [facility] [place] Encounter for follow-up examination after completed treatment for conditions other than malignant ne 3 Abhilash MCGEE FACS T ABHAY Cabrera. [address] [address], [place], [address], [place]. tel:[phone] Referring Provider: Rick Ernst MD, [address] [place] [address] Dr [address], [place], [address]. tel:[phone] [facility], [address] [place] [address] Dr Brennan 1000Suite [place], [id number], [place] tel:[phone] [facility] [place] Varicose veins of left lower extremity with other complications 3 Abhilash MCGEE FACS Ekaterina Cabrera. [address] [address], [place], [address], [place]. tel:[phone] Referring Provider: Rick Ernst MD, [address] [place] [address] Dr Albert, [place], [address]. tel:[phone] Office/Outpt E&M Established [address] [facility] Telemedicine [facility], [address] [place] [address] Dr Brennan 1000SuAndrew [place]aria [place], [id number], [place] tel:[phone] [facility] [place] Varicose veins of left lower extremity with pain Oct-2 5-202 3 Abhilash MCGEE FACS Ekaterina Cabrera. [address] [facility], [address], [place], [address], [place]. tel:[phone] Referring Provider: Rick Ernst MD, [address] [place] [address] Dr Albert, [place], [address]. tel:[phone] [facility], [address] [place] [address] Dr Brennan [address], [place], [id number], [place] tel:[phone] CV - [facility] Chronic venous hypertension w oth comp of l low extrem 3 Abhilash MCGEE FACS Ekaterina Cabrera. [facility]0 [facility], [facility] [address], [place], [address], [place]. tel:[phone] Referring Provider: Rick Ernst MD, [address] [place] [address] Dr Albert, [place], [address]. tel:[phone] Office/Oupt E&M New Pt 30 Mins [facility], [address] [place] [address] Dr Brennan [address], [place], [id number], [place] tel:[phone] CVR - [facility] Varicose veins of left lower extremities w oth complications 3 Abhilash MCGEE [facility] Cabrera. [address] [place] [address], [facility] 302, [place], [address], [place]. tel:[phone] Referring Provider: Rick Ernst MD, [address] [place] [address] Dr Albert, [place], [address]. tel:[phone] Family History Family Member Type Diagnosis Age At Onset No Information Payers Payer name Insurance type Covered democrat ID Anup esparza(s) [facility] CI [id number] Social History Type Description Quantity Date Captured [...]
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
--- OUTSIDE RECORDS SUMMARY | 2025-05-24 14:58 | XMS_ITS | Patient Health Record ---
Author Organization 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) Rick MCGEE Primary Care Provide r Kameron Matta Jr Unavailable Allergies No Known Allergies Reason [...] Problem Status W/U Status Risk Notes Problem [id number] Colon cancer screening (Z12.11) Active confirmed Problem 596348663 Change in bowel habits (R19.4) Active confirmed Problem 673322673 Irritable bowel syndrome with diarrhea (K58.0) Active confirmed Plan Of Treatment Future Test Test Name Order Date COLONOSCOPY 01/29/2015 COLONOSCOPY 06/17/2021 Insurance Providers Payer Name Payer Address Payer Phone Subscriber Number Group Number Insured Name Patient Relationship to Insured Coverage Start Date Coverage End Date [facility] [address] [place] [address] [id number] TOM AGGARWAL Self - patient is the insured MEDICAID OF [facility] [address] [place] [address] [phone] [id number] TOM AGGARWAL Self - patient is the insured Medical (General) History Medical History History ICD Code colonoscopy 03/05/15, five-ye ar followup for personal history of colon polyps. Hypothyroidism environmental allergies Denies DE,DM,CVA,Lung disease,renal dise ase Surgical History Surgery Date(Month/Year) hysterectomy for cervical cancer appendectomy
[2025-05-24 15:00] VITALS: BP 132/80; PULSE 85; TEMP 36.7; O2SAT 97; BMI 23.5
== END ==
LOC: HO.HMCHD 14:54
PROVIDERS: PCP Internal Medicine; Visit Provider Physician Assistant
DX: F41.9 Anxiety disorder, unspecified (principal); F32.A Depression, unspecified; E03.9 Hypothyroidism, unspecified; H35.30 Unspecified macular degeneration; J30.2 Other seasonal allergic rhinitis

== ENCOUNTER 2025-05-28 13:14 | Outpatient (REF) | payer MEDICARE, SELFPAY ==
--- OUTSIDE RECORDS SUMMARY | 2023-10-25 11:00 | XMS_ITS | Continuity of Care Document ---
Author Organization [facility] Address [address] [place] [address] [address] [place] [address] Phone Care Team Providers Care Engineering Analyst Name Role Phone Amadeo MCGEE, SELVIN, ABHAY, [...] E&M Established 15 Mins [facility], [address] [place] [address] Dr Brennan [address] 1000, [place], [id number], [place] tel:[phone] [facility] [place] Chronic venous hypertension (idiopathic) without complications of left lower extremity 4 Amadeo MCGEE, SELVIN, ABHAY Briggs. [address] [facility], [facility] 302, [facility] [place], [id number], [place]. tel:[phone] Referring Provider: Rick Ernst MD, [address] [place] [address] Dr Reinaldo [address] [place] [address], [place], [address]. tel:[phone] [facility], [address] [place] [address] Dr Brennan 1000Suite 1000Andrew [place], [id number], [place] tel:[phone] [facility] [place] Varicose veins of left lower extremity with other complications 3 Cali Arias. [address] [facility], [address], [place], [place], [id number], [place]. tel:[phone] Referring Provider: Rick Ernst MD, [address] [place] [address] Dr [address], [place], [address]. tel:[phone] [facility], [address] [place] [address] Dr Brennan 1000Suite [place] Or[place]z [place], [id number], [place] tel:[phone] [facility] [place] Encounter for follow-up examination after completed treatment for conditions other than malignant ne 3 Abhilash MCGEE FACS T ABHAY Cabrera. [address] [address], [place], [address], [place]. tel:[phone] Referring Provider: Rick Ernst MD, [address] [place] [address] Dr [address], [place], [address]. tel:[phone] [facility], [address] [place] [address] Dr Brennan 1000Suite Andrew Ordonez [place], [id number], [place] tel:[phone] [facility] [place] Varicose veins of left lower extremity with other complications 3 Abhilash MCGEE FACS Ekaterina Cabrera. [address] [address], [place], [address], [place]. tel:[phone] Referring Provider: Rick Ernst MD, [address] [place] [address] Dr Albert, [place], [address]. tel:[phone] Office/Outpt E&M Established 10 [facility] Telemedicine [facility], [address] [place] [address] Dr Brennan 1000SuAndrew [place]aria [place], [id number], [place] tel:[phone] [facility] [place] Varicose veins of left lower extremity with pain Oct-2 5-202 3 Abhilash MCGEE FACS Ekaterina Cabrera. [address] [facility], [address], [place], [address], [place]. tel:[phone] Referring Provider: Rick Ernst MD, [address] [place] [address] Dr Albert, [place], [address]. tel:[phone] [facility], [address] [place] [address] Dr Brennan 1000[address] 1000, [place], [id number], [place] tel:[phone] CV - [facility] Chronic venous hypertension w oth comp of l low extrem 3 Abhilash MCGEE FACS Ekaterina Cabrera. [facility]0 [facility], [facility] [address], [place], [address], [place]. tel:[phone] Referring Provider: Rick Ernst MD, [address] [place] [address] Dr Albert, [place], [address]. tel:[phone] Office/Oupt E&M New Pt 30 Mins [facility], [address] [place] [address] Dr Brennan 1000[address] 1000, [place], [id number], [place] tel:[phone] CVR - [facility] Varicose veins of left lower extremities w oth complications 3 Abhilash MCGEE [facility] Cab[facility]. [address] [place] [address], [facility] [address], [place], [address], [place]. tel:[phone] Referring Provider: Rick Ernst MD, [address] [place] [address] Dr Albert, [place], [address]. tel:[phone] Family History Family Member Type Diagnosis Age At Onset No Information Payers Payer name Insurance type Covered alliance party ID Anup esparza(s) [facility] CI [id number] Social History Type Description Quantity Date Captured [...]
[2025-05-28 13:29] LABS: MANUAL DIFF FLAG NO
[2025-05-28 13:46] LABS: Hematocrit 36.9 % (37.0-47.0); Hemoglobin 12.4 g/dl (12.0-16.0); Imm Gran Abs Auto 0.01 X10*3/uL (0.00-0.03); Imm Gran Pct Auto 0.2 % (0.0-0.4); Lymphocytes Absolute Auto 2.2 X10*3/uL (1.2-4.9); Mean Corpuscular HGB Conc 33.6 g/dl (31.0-35.0); Mean Corpuscular Hemoglobin 30.7 pg (27.0-33.0); Mean Corpuscular Volume 91.3 fL (80.0-98.0); NRBC Abs Auto 0.000 X10*3/uL (0.0-0.012); NRBC Pct Auto 0.0 /100WBC (0.0-0.2); Platelet Count 387 X10*3/uL (160-400); Red Blood Count 4.04 X10*6/uL (4.20-5.50); White Blood Count 5.5 X10*3/uL (4.8-10.8)
--- OUTSIDE RECORDS SUMMARY | 2025-05-28 14:32 | XMS_ITS | Clinical Summary ---
Author Organization [facility] Address [address] [address] Phone Care Team Providers Care Mailhouse Operator Name Role Phone Rick Ernst MD Primary Care Provider Allergies Active Allergy Reactions Criticality Noted Date Comments Cat Dander 07/16/2024 Dog Dander 07/16/2024 House Dust Mite Headaches 07/16/2024 Grass Pollen 07/16/2024 Medications LORazepam (ATIVAN) 1 MG tablet 1 mg every 6 (six) hours as needed for anxiety. Active QUEtiapine (SEROQUEL) 100 MG tablet Take 100 mg by mouth nightly at bedtime as needed. Active folic acid/multivit-min/l utein (ESSENTIAL WOMAN 50 PLUS ORAL) Take by mouth. Active b complex vitamins capsule Take 1 capsule by mouth daily. Active ZINC ORAL Take by mouth. Active cyclobenzaprine (FLEXERIL) 10 MG tablet TAKE 1 TABLET BY MOUTH 2 TIMES PER DAY FOR 7 DAYS AVOID ALCOHOL 5 Active ibuprofen (ADVIL,MOTRIN) 800 MG tablet TAKE 1 TABLET BY MOUTH TWICE A DAY NEEDED FOR PAIN FOR 7 DAYS 5 Active levothyroxine (SYNTHROID, LEVOTHROID) 100 MCG tabletIndications:A cquired hypothyroidism 1 tablet, orally, six days/week, 1/2 tablet on the 7th day, or as directed 84 tablet 1 5 Active Active Problems Problem Noted Date Diagnosed Date Irritable bowel syndrome with diarrhea 4 Acquired hypothyroidism Assessment & Plan (01/15/2025 1:05 PM EDT): Reports good consistency taking rx appropriately. Will check labs & adjust rx as appropriate. To call/message via portal if hasn't heard from me with results within 1-2 weeks. If levels normal, will repeat labs q6-12 months, sooner prn symptoms of thyroid dysfunction or > 10-15# weight change, or as otherwise clinically indicated. If we adjust rx, will repeat levels in 6-8 weeks. Assessment & Plan (07/16/2024 12:59 PM EDT): Reports good consistency taking rx appropriately. Will check labs & adjust rx as appropriate. To call/message via portal if hasn't heard from me with results within 1-2 weeks. If levels normal, will repeat labs yearly, sooner prn symptoms of thyroid dysfunction or > 10-15# weight change, or as otherwise clinically indicated. If we adjust rx, will repeat levels in 6-8 weeks. Assessment & Plan (12/14/2023 6:06 PM EDT): Reports good consistency taking rx appropriately. Levels have been off, awaiting results via PCP. Does note wasn't taking consistently in the past, but has been for the last couple of months. Will check labs & adjust rx as appropriate. To call/message via portal if hasn't heard from me with results within 1-2 weeks. If levels normal, will repeat labs yearly, sooner prn symptoms of thyroid dysfunction or > 10-15# weight change, or as otherwise clinically indicated. If we adjust rx, will repeat levels in 6-8 weeks. Itchy scalp Assessment & Plan (07/16/2024 12:59 PM EDT): Scalp itching unlikely related to thyroid. Could hold off on coloring hair or shift to different product. Would consider seeing dermatology if persistent. Hair loss could be related to thyroid if levels off, will check levels & adjust as appropriate. Family History Medical History Relation Comments Heart failure Father Cancer Mother pancreatic CA Thyroid disease Mother Relation Status Comments Father Mother Social History Tobacco Use Types Packs/Day Years Used Date Smoking Tobacco: Former Cigarettes 0.3 2 2 015 - 2017 Passive Smoke Exposure: Past Smokeless Tobacco: Never Tobacco Cessation:Counseling Given: No Alcohol Use Standard Drinks/Week Comments Yes 0 (1 standard drink = 0.6 oz pur e alcohol) Ocassionally Education Answer Date Recorded Are you interested in more education? Not on zakiya e 03/23/2023 Are you concerned about learning? Not on file 03/23/2023 No 03/23/2023 No 03/23/2023 Digital Access Answer Date Recorded No 03/23/2023 No 03/23/2023 Reliable internet access at home? Not on file 03/23/2023 Device with a working camera? Not on file Comments Unknown Sex and Gender Information Value Date Recorded Sex Assigned at Not on file Legal Sex Female 8:32 AM EDT Gender Identity Not on file Sexual Orientation Not on file Last Filed Vital Signs Vital Sign Reading Time Taken Comments Blood Pressure 112/60 01/15/2025 10:40 AM EDT Pulse 75 01/15/2025 10:40 AM EDT Temperature 36.3 C (97.4 F) 01/15/2025 10:40 AM EDT Respiratory Rate 20 01/15/2025 10:4 0 AM EDT Oxygen Saturation 98% 01/15/2025 10: 40 AM EDT Inhaled Oxygen Concentration - - Weight 71.1 kg (156 lb 12.8 oz) 025 10:40 AM EDT Height 171.5 cm (5' 7.52 ) 01/15/2025 1 0:40 AM EDT Body Mass Index 24.18 01/15/2025 10:40 AM EDT Plan of Treatment Upcoming Encounters Date Type Department Care Team (Late st Contact Info) Description 08/05/2025 11:20 AM EST Office Visit [facility] Endocrinology [address] [id number] Jana Yañez MD [address] [place] [id number] [email or web address] Health Maintenance Due Date Last Done Comments Adult Td,Tdap Booster 1959 LIPID PANEL 1959 DEPRESSION SCREENING 1971 HEPATITIS C SCREENING 12/24/1977 HIV ONE-TIME SCREENING (18-65 YEARS) 12/24/1977 MAMMOGRAM 1999 COLOGUARD 12/24/2004 COLONOSCOPY 12/24/2004 COLORECTAL CANCER SCREENING 12/24/2004 FIT TEST 12/24/2004 FOBT 12/24/2004 SIGMOIDOSCOPY 12/24/2004 VIRTUAL COLONOSCOPY 12/24/2004 PNEUMOCOCCAL VACCINES (50+ years) (1 of 1 - PCV) 12/24/2009 ZOSTER VACCINES (1 of 2) 12/24/2009 COVID-19 VACCINE (1 - season) 2024 OSTEOPOROSIS SCREENING INITIAL (ONE-TIME) 12/24/2024 TSH LEVEL 01/15/2026 01/15/2025, 08/26, 07/16/2024, Additional history exists SMOKING STATUS SCREENING (Every 5 Years) 01/15/2030 01/15/2025 RSV VACCINE (1 - 1-dose 75+ series) 12/24/2034 HEPATITIS A VACCINES Aged Out No long er eligible based on patient's age to complete this topic HIB VACCINES Aged Out No longer eligi ble based on patient's age to complete this topic MENINGOCOCCAL VACCINES (ACWY) Aged Out No longer eligible based on patient's age to complete this topic MENINGOCOCCAL VACCINES (B) Aged Out N o longer eligible based on patient's age to complete this topic Medical Devices Not on file Procedures Procedure Name Priority Date/Time Associated Diagnosis Comments TSH WITH REFLEX Routine 01/15/2025 11:25 AM EDT Acquired hypothyroidism from Last 3 Months or Most Recently Relevant to Health Maintenance Results * (ABNORMAL) TSH with reflex (01/15/2025 11:25 AM EDT) TSH 0.26(L) 0.27 - 4.20 uIU/mL [facility] Blood 01/15/2025 11:2 5 AM EDT 01/15/2025 11:27 AM EDT us Jana Yañez MD LAB BLOOD ORDERABLES F inal Result [facility] [address] [place] [address] from Last 3 Months or Most Recently Relevant to Health Maintenance Insurance MEDICARE REPLACEMENT MEDICARE REPLACEMENT MEDICARE REPLACEMENT [place] [id number] [place] [address] MEDICARE REPLACEMENT MEDICARE REPLAC[place] [address] [place] [address] MEDICARE REPLACEMENT Care Teams Mailhouse Operator Relationship Specialty Start Date End Date Rick Ernst MD [address] [place] [address] [place] [address] PCP - General Internal Medicine 01/15/25 Additional Source Comments The information contained in this document represents components of the legal health record. It is not the complete legal health record.[facility]
[2025-05-28 14:47] LABS: Alanine Aminotransferase 20 U/L (0-31); Albumin Level 4.4 g/dL (3.5-5.0); Alkaline Phosphatase 112 U/L (39-117); Anion Gap 12 (12-20); Aspartate Amino Transferase 27 U/L (5-31); Blood Urea Nitrogen 11 mg/dL (9-16); Calcium 9.0 mg/dL (8.4-10.2); Carbon Dioxide 25 mmol/L (22-29); Chloride 110 mmol/L (96-108); Cholesterol 179 mg/dL (<200); Estimated Glomerular Filt Rate > 60; HDL Cholesterol 49 mg/dL (>40); Iron 118 mcg/dL (30-160); Percent Iron Saturation 46 % (15-50); Potassium 4.2 mmol/L (3.3-5.1); Sodium 143 mmol/L (135-145); Total Iron Binding Capacity 255 mcg/dL (228-428); Total Protein 6.9 g/dL (6.5-8.0); Triglycerides 52 mg/dL (<150); Unsaturated Iron Binding 137 ug/dL
[2025-05-28 16:57] LABS: Free T4 (Free Thyroxine) 1.11 ng/dL (0.71-1.85)
== END 2025-05-28 13:15 | disposition home or self-care (01) ==
LOC: HO.LAB 13:14
PROVIDERS: PCP Physician Assistant; Visit Provider Physician Assistant
DX: F41.9 Anxiety disorder, unspecified (principal); F32.A Depression, unspecified; E03.9 Hypothyroidism, unspecified; H35.30 Unspecified macular degeneration; Z13.0 Encounter for screening for diseases of the blood and blood-forming organs and certain disorders involving the immune mechanism; Z13.21 Encounter for screening for nutritional disorder
CPT/HCPCS: 36415; 80048; 80061; 80076; 82306; 83540; 84439; 84443; 85025

== ENCOUNTER 2025-08-19 11:02 | Outpatient (RCR) | payer OTHER, MEDICARE, SELFPAY ==
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
== END 2025-08-27 11:40 | disposition home or self-care (01) ==
LOC: HO.PT 11:02
PROVIDERS: PCP Physician Assistant; Visit Provider Physician Assistant
DX: M54.2 Cervicalgia (principal)
CPT/HCPCS: 97110; 97112; 97140; 97161

== ENCOUNTER 2025-08-28 15:16 | Outpatient (AMB) | payer OTHER, MEDICARE, SELFPAY ==
--- OUTSIDE RECORDS SUMMARY | 2023-10-25 10:00 | XMS_ITS | Continuity of Care Document ---
Author Organization [facility] Address [address] [place] [address] [address] [place] [address] Phone Care Team Providers Care Block Stacker Name Role Phone Amadeo MCGEE, SELVIN, ABHAY, Chester Unavailable U navailable Procedures Procedure Date Office/Outpt E&M Established 15 Mins Sep Phleb Veins - Extrem - To 20 Inj Scleros Solut; Mx Veins 1 3 Duplex Scan-extrem Veins; Uni/ 23 Endovenous Laser, 1st Vein Office/Outpt E&M Established 10 Mins - T elemedicine Duplex Scan-extrem Veins; Uni/ 23 Office/Oupt E&M New Pt 30 Mins 23 Advance Directives Directive Yes / No Effective Date File Name No Information Encounters Encounter Description Practice Location Reason(s) For Visit Diagnoses Date Provider Providers Copied on Encounter Office/Outpt E&M Established 15 Mins [facility], [address] [place] [address] Dr Brennan [address], [place], [id number], [place] tel:[phone] [facility] [place] Chronic venous hypertension (idiopathic) without complications of left lower extremity 4 Amadeo MCGEE, SELVIN, ABHAY Briggs. [address] [facility], [facility] 302, [facility] [place], [id number], [place]. tel:[phone] Referring Provider: Rick Ernst MD, [address] [place] [address] Dr Reinaldo [address] [place] [address], [place], [address]. tel:[phone] [facility], [address] [place] [address] Dr Brennan [address]Andrew [place], [id number], [place] tel:[phone] [facility] [place] Varicose veins of left lower extremity with other complications 3 Cali Arias. [address] [facility], [address], [place], [place], [id number], [place]. tel:[phone] Referring Provider: Rick Ernst MD, [address] [place] [address] Dr [address], [place], [address]. tel:[phone] [facility], [address] [place] [address] Dr Brennan 1000Suite [place], [id number], [place] tel:[phone] [facility] [place] Encounter for follow-up examination after completed treatment for conditions other than malignant ne 3 Abhilash MCGEE FACS T ABHAY Cabrera. [address] [address], [place], [address], [place]. tel:[phone] Referring Provider: Rick Ernst MD, [address] [place] [address] Dr [address], [place], [address]. tel:[phone] [facility], [address] [place] [address] Dr Brennan 1000Suite Andrew Or[place], [id number], [place] tel:[phone] [facility] [place] Varicose veins of left lower extremity with other complications 3 Abhilash MCGEE FACS Ekaterina Cabrera. [address] [address], [place], [address], [place]. tel:[phone] Referring Provider: Rick Ernst MD, [address] [place] [address] Dr Albert, [place], [address]. tel:[phone] Office/Outpt E&M Established 10 [facility] Telemedicine [facility], [address] [place] [address] Dr Brennan 1000SuAndrew [place], [id number], [place] tel:[phone] [facility] [place] Varicose veins of left lower extremity with pain Oct-2 5-202 3 Abhilash MCGEE FACS Ekaterina Cabrera. [address] [facility], [address], [place], [address], [place]. tel:[phone] Referring Provider: Rick Ernst MD, [address] [place] [address] Dr Albert, [place], [address]. tel:[phone] [facility], [address] [place] [address] Dr Brennan [address], [place], [id number], [place] tel:[phone] CV - [facility] Chronic venous hypertension w oth comp of l low extrem 3 Abhilash MCGEE FACS Ekaterina Cabrera. [facility], [facility] 302, [place], [address], [place]. tel:[phone] Referring Provider: Rick Ernst MD, [address] [place] [address] Dr Albert, [place], [address]. tel:[phone] Office/Oupt E&M New Pt 30 Mins [facility], [address] [place] [address] Dr Brennan [address], [place], [id number], [place] tel:[phone] CVR - [facility] Varicose veins of left lower extremities w oth complications 3 Ab[facility]ilash MCGEE [facility] Cab[facility]. [address] [place] [address], [facility] [address], [place], [address], [place]. tel:[phone] Referring Provider: Rick Ernst MD, [address] [place] [address] Dr Albert, [place], [address]. tel:[phone] Family History Family Member Type Diagnosis Age At Onset No Information Payers Payer name Insurance type Covered green party ID Anup esparza(s) [facility] CI [id number] Social History Type Description Quantity Date Captured Comments Alcohol Use Details Unknown Caffeine Use Details Unknown Tobacco Use Status Smoking Status Smoker, current stat us unknown Non-Smoking Tobacco Use Details : No Details Available : No Details Available Sex Female Vital Signs Date / Time: Height Weight BMI Pulse Rate Blood Pressure Temperature Respiratory Rate Body Surface Area Head Circumference Head Circ. Percentile Wt./Lakhwinder. Percentile BMI percentile Pulse Ox Inhaled Ox 67.130 kg (148.00 lbs) 23.2 6 kg/m eter (2) 130/80 mm[Hg] Chief Complaint And Reason For Visit No Information Reason For Referral Reason For Referral No Information Plan Of Treatment Date Type Action Status Goal Tobacco cessation counseling completed Goal Diet education completed Goal Tobacco cessation counseling completed Goal Tobacco cessation counseling completed Goal Diet education completed Referral Ordered: Weight management: Referral to physician timeframe: 3 Months (related to Body mass index (BMI) 23.0-23.9, adult) ordered Referral Ordered: Weight management: Referral to physician timeframe: 3 Months (related to Body mass index (BMI) 23.0-23.9, adult) ordered History Of Present Illness Encounter Date Complaint History Of Prese nt Illness No Information Functional Status Date Functional Assessmen t No Information Instructions Date Instruction Additional Infor mation Patient education booklet given Related to Chronic venous hypertension (idiopathic) without complications of left lower extremity Lifestyle education Related to B nic mass index (BMI) 23.0-23.9, adult Giving Encouragement to exercise Related to Body mass index (BMI) 23.0-23.9, adult Diet education Related to Body mass index (BMI) 23.0-23.9, adult Pre and post instruc tions reviewed and provided Related to Varicose veins of left lower extremities w oth complications Patient education booklet given Related to Varicose veins of left lower extremities w oth complications Lifestyle education Related to B nic mass index (BMI) 23.0-23.9, adult Giving Encouragement to exercise Related to Body mass index (BMI) 23.0-23.9, adult Diet education Related to Body mass index (BMI) 23.0-23.9, adult Assessments Type Assessment Date No Information Patient Care Teams Name Effective Dates (start - stop) Status Members No Information
--- NOTE | 2025-08-28 15:19 | A.OFFPC_ITS ---
Vital Signs 08/28/25 15:20 Height 5 ft 6.25 in Weight 69.116 kg BMI 24.4 BP 100/52 L Blood Pressure Location Rt brachial Position Sitting Respiration 16 Pulse 77 Pulse Source Pulse Oximeter Temp 96.8 F Temp Source Temporal Artery Scan Pulse Oximetry (%) 99 Oxygen Delivery Method Room Air Intake Visit Reasons: Fall, left side, hurt arm Front Desk Monitor Required: No Accompanied by: Self / Same As Patient Allergies oxycodone (From OxyContin) Allergy (Verified 08/28/25 15:19) Vomiting DUST Allergy (Unknown, Uncoded 05/24/25 14:58) CONGESTION; ITCHINESS Environmental Allergy (Unknown, Uncoded 05/24/25 14:58) STUFFY NOSE Tobacco use date assessed: 03/01/25 Fall risk assessment: 1 Fall in past year Last assessed Fall Risk: 08/28/25 Dental Screening Dental Screen Date: 03/01/25 HPI HPI Comments History of Present Illness Details History of Present Illness The patient is a 64 year old individual presenting for evaluation of a left arm injury after a fall. Left Forearm Injury: - The patient presents after slipping an d falling, landing on the left arm to break the fall. - The patient describes the pain as a co nstant soreness, rated 7 out of 10. - The patient took two Motrin pills and applied ice to the arm, which provided some relief. - Associated symptoms at the time of the fall included feeling faint and a brief episode of dizziness. - The patient denies hitting the head, l oss of consciousness, chest pain, palpitations, shortness of breath, or nausea. - The patient was able to stand up and w alk home without assistance immediately after the fall. Health Maintenance: - The patient reports undergoing a mobil e Life Screening in April, which included a bone density scan, atrial fibrillation screening, an abdominal aorta scan, and a peripheral artery disease screening. - The patient was told verbally that the results were fine but has not received the formal report, and previous attempts to have the records faxed to the clinic were unsuccessful. Medical History: - History of muscular back soreness, wit h prior back X-rays reported as showing only muscle soreness. Medications: - Motrin: The patient took two pills for left arm pain following the injury. Social History: - Functional Status: The patient reports being physically active, performing activities such as lawn mowing and shoveling. - Pets: The patient owns an 11-year-old dog. - Stressors: The patient reports feeling stressed and rushed while caring for a son with OCD and managing a dog. Family History: - Mother: in 2013. - Son: Diagnosed with Obsessive-Compulsi ve Disorder (OCD). Diagnostic Results: - Past Imaging: Prior back X-rays for mu scle soreness were unremarkable. - Health Screening: Unconfirmed results from a Life Screening event in April, which reportedly included bone density, atrial fibrillation, abdominal aorta, and peripheral artery screening; patient was told verbally that results were fine. Review of Systems - Constitutional: Reports feeling hot af ter the fall, which is unusual for the patient. Denies being lightheaded before the fall. - Neurological: Reports feeling faint an d a little dizzy after the fall. Denies loss of consciousness, vertigo, or hitting the head. - Cardiovascular: Denies chest pain or p alpitations. - Respiratory: Denies shortness of breat h. - Gastrointestinal: Denies nausea. - Musculoskeletal: Reports soreness and 7/10 pain in the left forearm. Denies pain in the wrist or elbow. Denies hip or back pain from the fall. Vital Signs - Blood Pressure: 116/60 mmHg. Health Maintenance - Bone Density Screening: Patient report s having a bone density scan via a mobile Life Screening in April, but results are not on file. - Cardiovascular Screening: Patient repo rts screening for atrial fibrillation and abdominal aortic aneurysm as part of the mobile screening. - Peripheral Artery Disease Screening: P atient reports undergoing peripheral artery testing at the same event. - Records Request: A request will be mad e to [facility] Screening to obtain the results of these tests. Physical Exam Constitutional: Awake and alert, no apparent distress, but reports feeling dizzy and like they might pass out after the fall. No nausea or room spinning, just woozy. Heart: RRR, S1S2, no murmurs, no edema, no chest pain, no fluttering. Lungs: CTA bilaterally, no wheezing, no shortness of breath. Extremities: No calf tenderness. Left arm is sore and swollen throughout the forearm compared to the right. Pain described as 7/10, constant. No pain in the wrist or hand, but sore in the forearm area. No elbow pain. Able to apply some pressure and use the arm, but it is sore. No hip or back pain. Skin: Warm and dry, but left forearm is swollen. Advised not to put ice directly on the skin to avoid burning. Neuro: Alert and oriented x 3. No head injury reported. Able to walk and stand up right after the fall. No weakness, but discomfort when applying pressure to the left arm. Assessment and Plan 1. Left forearm injury secondary to fall - The patient is a 64-year-old individua l who landed on the left arm. - While a fracture is not suspected due to the lack of focal tenderness, an X- ray is prudent given the patient's age and mechanism of injury to definitively rule one out. - An order has been placed for a left fo rearm X-ray to be done today. - The patient is instructed to use RICE therapy (Rest, Ice, Compression, Elevation) for symptomatic management. - The patient may continue using Motrin for analgesia. 2. Post-fall presyncope - The patient experienced a brief, self- resolving episode of dizziness after the fall, likely vasovagal secondary to pain. - The patient denied pre-fall dizziness or other cardiac symptoms, and blood pressure in the office is normal. - No further workup is indicated at this time. 3. Health Maintenance - The patient is due for bone density sc reening. - The patient reports having this and ot her screenings (atrial fibrillation, abdominal aortic aneurysm, peripheral artery disease) completed in April via Life Screening. - Records will be requested from this en tity for review. - Further recommendations will be based on these results. Plan - An X-ray of the left forearm has been ordered to be completed today. - Recommended RICE therapy (Rest, Ice, C ompression, and Elevation) for the left arm. - Instructed patient on using a barrier between ice and skin. - A request for records will be sent to [facility] Screening to obtain results from the patient's recent bone density, atrial fibrillation, abdominal aorta, and peripheral artery screenings. Patient was informed and verbally consented to the use of an ambient scribe for clinic note documentation during this visit. Discussion Notes I discussed with the patient that although I doubt the left arm is fractured due to the lack of specific tenderness, an X-ray is recommended to be certain, given the patient's age and the nature of the fall. I have ordered the X-ray, which the patient can get done today. I advised the patient to continue with Rest, Ice, Compression, and Elevation (RICE therapy) to help with the swelling, and reminded the patient to use a cloth barrier when icing the arm. We also discussed a recent bone density scan and other screenings the patient had with a mobile service called [facility] Scre[facility], and I informed the patient we will request those records for our file. Patient Instructions - Please go for an X-ray of your left ar m today. The facility is across the street. - For your injured arm, follow the RICE method: Rest, Ice, Compression (using a wrap), and Elevation (keeping the arm raised). - When using an ice pack, always put a c loth or towel between the ice and your skin to protect it. - Protect your arm from being bumped and be careful when walking on ice to prevent another fall. [facility] Medical History Generalized headaches Cervicalgia Arthritis Anxiety and depression Hx of migraines Hypothyroid Surgical History Hx of hysterectomy Hx of colonoscopy (~07/07/21) History of laparoscopic appendectomy Social History Housing: House Patient Tobacco Use Status: Never used Tobacco e-Cigarette/Vaping Use: Never Used service: No Current occupational status: retired Cognitive needs: No Hearing needs: No Vision needs: Yes Questionnaire Thrive Questionnaire Date Thrive assessed: 03/01/25 AUDIT C Alcohol Use Questionnaire (AUDIT-C) 1. How often do you have a drink containing alcohol?: Never 3. How often do you have six or more drinks on one occasion?: Never Total Score: 0 VIV-7 AMB Questionnaire VIV-7 Date VIV - 7 assessed: 03/01/25 Source: Developed by Drs. Chester Dominguez, Geno Still, Rocco Gonzalez and colleagues, with an educational lorenzo from [employer]. Physical exam (Primary Care) Vital Signs: Last Vital Signs Temp 96.8 F 08/28/25 15:20 Pulse 77 08/28/25 15:20 Resp 16 08/28/25 15:20 BP 100/52 L 08/28/25 15:20 Pulse Ox 99 08/28/25 15:20 Oxygen Delivery Method Room Air 08/28/25 15:20 BMI result Body Mass Index 24.4 Tobacco/Smoking Status: Tobacco use Status Tobacco use date assessed 03/01/25 08/28/25 15:25 Patient Tobacco Use Status Never used Tobacco 08/28/25 15:25 e-Cigarette/Vaping Use Never Used 08/28/25 15:25 Thrive Assessment: Date of Thrive Assessment Date Thrive assessed 03/01/25 08/28/25 15:25 Coding Level of Care Code Est Pt Level 3 (77834) Complex visit Add On G2211 Diagnoses Injury of left forearm S59.912A Assessment & Plan Assessment & Plan (1) Injury of left forearm: Code(s): S59.912A - Unspecified injury of left forearm, initial encounter Category: Medical Plan: xr left forearm ordered. RICE therapy recommended. Orders: Orders XR forearm LT 2V 08/28/25 M79.639 - Pain in unspecified forearm, W19.XXXA - Unspecified fall, initial encounter
[2025-08-28 15:20] VITALS: BP 100/52; PULSE 77; RESP 16; TEMP 36; O2SAT 99; BMI 24.4
--- OUTSIDE RECORDS SUMMARY | 2025-08-28 18:20 | XMS_ITS | Clinical Summary ---
Author Organization [facility] Address [address] [facility] [address] [place] [address] Phone Care Team Providers Care Lock Up Worker Name Role Phone Rick Ernst MD Primary [...] (SYNTHROID, LEVOTHROID) 100 MCG tabletIndications:A cquired hypothyroidism TAKE 1 TABLET BY MOUTH DAILY SIX DAYS PER WEEK. TAKE 1/2 TABLET ON 7TH DAY, OR DIRECTED 84 tablet 5 Active Active Problems Problem Noted Date [...] will check levels & adjust as appropriate. Encounters Date Type Department Care Team Description 05/30/2025 Refill [facility] Endocrinology [address] [place] [address] Jana Yañez MD Medication Refill from Last 3 Months Family History Medical History Relation Comments Heart [...] Care Team (Late st Contact Info) Description 09/16/2025 3:40 PM EST Office Visit [facility] Endocrinology [address] [address] Jana Yañez MD [address] [place] [address] [phone] (work) Health Maintenance Due Date Last Done Comments Adult Td,Tdap Booster 1959 LIPID PANEL 1959 DEPRESSION SCREENING 1971 HEPATITIS C SCREENING 12/24/1977 HIV ONE-TIME SCREENING (18-65 YEARS) 12/24/1977 MAMMOGRAM 1999 COLOGUARD 12/24/2004 COLONOSCOPY 12/24/2004 COLORECTAL CANCER SCREENING 12/24/2004 FIT TEST 12/24/2004 FOBT 12/24/2004 SIGMOIDOSCOPY 12/24/2004 VIRTUAL COLONOSCOPY 12/24/2004 PNEUMOCOCCAL VACCINES (50+ years) (1 of 1 - PCV) 12/24/2009 ZOSTER VACCINES (1 of 2) 12/24/2009 OSTEOPOROSIS SCREENING INITIAL (ONE-TIME) 12/24/2024 INFLUENZA VACCINE (#1) 2025 COVID-19 VACCINE ( - season) 2025 TSH LEVEL 01/15/2026 01/15/2025, 08/26, 07/16/2024, Additional [...] EDT) TSH 0.26(L) 0.27 - 4.20 uIU/mL [facility] Blood 01/15/2025 11:2 5 AM EDT 01/15/2025 11:27 AM EDT us Jana Yañez MD LAB BLOOD BKR ORDERABL ES Final Result [facility] [address] [place] [address] from Last 3 Months or Most Recently Relevant to Health Maintenance [place] [address] [address] MEDICARE REPLACEMENT Member Subscriber Plan / Payer (Ef fective 2024-Present) Name:Jessica Barber Relation to Subscriber:Self Name:Jessica Barber Payer ID:[id number] (NAIC) Type:Medicare Address: [place] [id number] [place] [address] MEDICARE REPLACEMENT [place] [id number] MEDICARE REPLACEMENT [place] [address] MEDICARE REPLACEMENT [place] [address] Care Teams Lock Up Worker Relationship Specialty Start Date End Date Rick Ernst MD [address] [place] [address] [place] [address] PCP - General Internal Medicine 01/15/25 Additional Source Comments The information contained in this document represents components of the legal health record. It is not the complete legal health record.[facility]
--- OUTSIDE RECORDS SUMMARY | 2025-08-28 18:20 | XMS_ITS | Patient Health Record ---
Author Organization [facility] Address [address] [place] [address] Care Team Providers Care Real Estate Office Supervisor Name Role Phone Klever (RETIRED) Rick MCGEE Primary Care Provide r Kameron Matta Jr Unavailable [phone] Allergies No Known Allergies Reason For Referral No Information Medications Medication SIG (Take, Route, Frequency, Duration) Notes Start Date End Date Status MiraLax (colon prep) 17 GM/SCOOP Powder mixed with Gatorade or Crystal Light Orally begin at 5:00 p.m. the day before the procedure; Duration: 1 day 06/17/2021 Active SEROquel 100 MG Tablet 1 tablet Orally prn Active Venlafaxine HCl 100 MG Tablet 1 tablet with food Orally Once a day; Duration: 30 day(s) Active LORazepam 1 MG Tablet 1 tablet as needed Orally prn Active Fish Oil 1200 MG Capsule 1 capsule Orally prn Active Synthroid 112 MCG Tablet 1 tablet Orally Once a day Active Immunizations Vaccine Route Administration Date Status Comme nts Influenza Unknown 01/17/2019 Refused Influenza Unknown 06/17/2021 Refused Social History Social History Additional Details Category Social Info Options Details Miscellaneous: Marital status: single Occupation: retired Problems Problem Type SNOMED Code ICD Code Onset Dates Problem Status W/U Status Risk Notes Problem Colon cancer screening (312246246) Colon cancer screening (Z12.11) Active confirmed Problem Change in bowel habit (21131648) Change in bowel habits (R19.4) Active confirmed Problem Irritable bowel syndrome with diarrhea (268529232) Irritable bowel syndrome with diarrhea (K58.0) Active confirmed Plan Of Treatment Future Test Test Name Order Date COLONOSCOPY 01/29/2015 COLONOSCOPY 06/17/2021 Insurance Providers Payer Name Payer Address Payer Phone Subscriber Number Group Number Insured Name Patient Relationship to Insured Coverage Start Date Coverage End Date [facility] [address] [place] [phone] [id number] TOM AGGARWAL Self - patient is the insured MEDICAID OF [facility] [address] [place] [address] [id number] TOM AGGARWAL Self - patient is the insured Medical (General) History Medical History History ICD Code colonoscopy 03/05/15, five-ye ar followup for personal history of colon polyps. Hypothyroidism environmental allergies Denies MD,DM,CVA,Lung disease,renal dise ase Surgical History Surgery Date(Month/Year) hysterectomy for cervical cancer appendectomy
== END 2025-08-28 16:15 | disposition home or self-care (01) ==
LOC: HO.HMCHD 15:16
PROVIDERS: PCP Physician Assistant; Visit Provider Physician Assistant
DX: S59.912A Unspecified injury of left forearm, initial encounter (principal)

== ENCOUNTER 2025-09-23 13:59 | Outpatient (REF) | payer MEDICARE, SELFPAY ==
--- OUTSIDE RECORDS SUMMARY | 2025-09-23 16:15 | XMS_ITS | Encounter Summary ---
Author Organization [facility] Address [address] [facility] [address] [place] [address] Phone Care Team Providers Care Basket Hand Weaver Name Role Phone Keyla Young Primary Care Provider [phone] Reason for Visit * Reason Onset Date Comments Labs 09/16/2025 Encounter Details Date Type Department Care Team (Late st Contact Info) Description 09/16/2025 Telephone [facility] [address] [place] [address] Jana Yañez MD [address] [place] [phone] [email or web address] Social History Tobacco Use Types Packs/Day Years Used Date Smoking Tobacco: Former Cigarettes 0.3 2 2 015 - 2017 Passive Smoke Exposure: Past Smokeless Tobacco: Never Alcohol Use Standard Drinks/Week Comments Yes 0 [...] on file Sexual Orientation Not on file documented as of this encounter Progress Notes * Brandy Lopez - 09/23/2025 3:39 PM EST Patient had their labs done today 09/23 at [facility]. * Amber Cardenas MA - 09/17/2025 10:21 AM EST [facility] [facility] [place], scanned into media Faxed request again but only labs done are from May * Amber Cardenas MA - 09/16/2025 4:13 PM EST Faxed request * Jana Yañez MD - 09/16/2025 4:05 PM EST Please obtain labs done via PCP last 12 months, [facility] documented in this encounter Plan of Treatment Upcoming Encounters Date Type Department Care Team (Late st Contact Info) Description 09/15/2026 11:00 AM EST Office Visit [facility] [address] [place] [phone] Jana Yañez MD [address] [place] [phone] [email or web address] documented as of this encounter Visit Diagnoses Not on filedocumented in this encounter Care Teams Basket Hand Weaver Relationship Specialty Start Date End Date Keyla Young PA [address] [place] [address] [email or web address] PCP - General Physician Dragline Oiler 09/16/25 documented as of this encounter Additional Source Comments The information contained in this document represents components of the legal health record. It is not the complete legal health record.[facility]
--- OUTSIDE RECORDS SUMMARY | 2025-09-23 16:15 | XMS_ITS | Patient Health Record ---
Author Organization [facility] Address [address] [place] [address] Care Team Providers Care Mathematics Academic Chair Name Role Phone Klever (RETIRED) Rick MCGEE [...] Status Risk Notes Problem Colon cancer screening (851141809) Colon cancer screening (Z12.11) Active confirmed Problem Change in bowel habit (64773780) Change in bowel habits (R19.4) Active confirmed Problem Irritable bowel syndrome with diarrhea (301141757) Irritable bowel syndrome with diarrhea (K58.0) Active confirmed Plan Of Treatment Future Test Test Name Order Date COLONOSCOPY 01/29/2015 COLONOSCOPY 06/17/2021 Insurance Providers Payer Name Payer Address Payer Phone Subscriber Number Group Number Insured Name Patient Relationship to Insured Coverage Start Date Coverage End Date [facility] [address] [place] [address] [id number] TOM AGGARWAL Self - patient is the insured MEDICAID OF [facility] [address] [place] [address] [id number] TOM AGGARWAL Self - patient is the insured Medical (General) History Medical History History ICD Code colonoscopy 03/05/15, five-ye ar followup for personal history of colon polyps. Hypothyroidism environmental allergies Denies [place],DM,CVA,Lung disease,renal dise ase Surgical History Surgery Date(Month/Year) hysterectomy for cervical cancer appendectomy
--- OUTSIDE RECORDS SUMMARY | 2025-09-23 16:15 | XMS_ITS | Clinical Summary ---
Author Organization [facility] Address [address] [address] Phone Care Team Providers Care Sales Store Checker Name Role Phone Keyla Young Primary Care Provider [phone] Allergies Active Allergy Reactions Criticality Noted Date [...] diarrhea 4 Acquired hypothyroidism Assessment & Plan (09/17/2025 1:24 PM EST): Reports good consistency taking rx appropriately. Will [...] levels in 6-8 weeks. Assessment & Plan (01/15/2025 1:05 PM EDT): [...] Encounters Date Type Department Care Team Description 09/16/2025 3:40 PM EST Office Visit [facility] Endocrinology Clinic [address] [facility] [place] [address] Jana Yañez MD Acquired hypothyroidism (Primary Dx) 09/16/2025 Telephone [facility] Endocrinology [facility] [address] [place] [address] Jana Yañez MD Labs from Last 3 Months Family History Medical [...] Sign Reading Time Taken Comments Blood Pressure 110/64 09/16/2025 3:47 PM EST Pulse 72 09/16/2025 3:47 PM EST Temperature 36.3 C (97.4 F) 01/15/2025 10:40 AM EDT Respiratory Rate 20 01/15/2025 10:40 AM EDT Oxygen Saturation 94% 09/16/2025 3:47 PM EST Inhaled Oxygen Concentration - - Weight 69.4 kg (153 lb) 09/16/2025 3:47 PM EST Height 171.5 cm (5' 7.52 ) 09/16/2025 3:47 PM ES T Body Mass Index 23.6 09/16/2025 3:47 PM EST Plan of Treatment Upcoming Encounters Date Type Department Care Team (Late st Contact Info) Description 09/15/2026 11:00 AM EST Office Visit [facility] Endocrinology Clinic [address] [place] [address] Jana Yañez MD [address] [place] [phone] [email or web address] Health Maintenance Due Date Last Done Comments [...] EDT) TSH 0.26(L) 0.27 - 4.20 uIU/mL [facility] Blood 01/15/2025 11:2 5 AM EDT 01/15/2025 11:27 AM EDT us Jana Yañez MD LAB BLOOD BKR ORDERABL ES Final Result Performing Organization Address City/State/[facility] Co de Phone Number [address] [phone] from Last 3 Months or Most Recently Relevant to Health Maintenance [place] [address] MEDICARE REPLACEMENT [facility] MEDICARE REPLACEMENT MEDICARE REPLACEMENT MEDICARE [place] [address] [place] [address] [place] [place] [address] MEDICARE REPLACEMENT Care Teams Sales Store Checker Relationship Specialty Start Date End Date Keyla Young PA [address] [facility] [address] [place] [address] [email or web address] PCP - General Physician Dehydrator Tender 09/16/25 Additional Source Comments The information contained in this document represents components of the legal health record. It is not the complete legal health record.[facility]
== END 2025-09-23 14:00 ==
LOC: HO.LAB 13:59
PROVIDERS: PCP Physician Assistant; Visit Provider Internal Medicine Endocrinology, Diabetes & Metabolism
DX: E03.9 Hypothyroidism, unspecified (principal)
CPT/HCPCS: 36415; 84443